=== PATIENT | female | born 1955 | race Caucasian/White ===

== ENCOUNTER → 2016-12-26 | Outpatient (CLI) | payer OTHER ==
[2016-12-26 11:31] LABS: ABSOLUTE BASOPHILS # (AUTO) 0.1 10^3/uL (0.0-0.2); ABSOLUTE EOSINOPHILS # (AUTO) 0.3 10^3/uL (0.0-0.6); ABSOLUTE LYMPHOCYTES (AUTO) 2.3 10^3/uL (0.5-4.7); ABSOLUTE MONOCYTES (AUTO) 0.4 10^3/uL (0.1-1.4); ABSOLUTE NEUT (AUTO) 3.3 10^3/uL (1.7-8.2); BASOPHILS % (AUTO) 1.5 % (0-2); EOSINOPHILS % (AUTO) 4.6 % (0-6); HEMATOCRIT 38.5 % (36.0-47.0); HEMOGLOBIN 12.4 g/dL (12.0-15.5); HGB HCT DIFFERENCE -1.3; LYMPHOCYTES % (AUTO) 35.7 % (13-45); MEAN CORPUSCULAR HEMOGLOBIN 25.5 pg (27.0-33.4); MEAN CORPUSCULAR HGB CONC 32.3 g/dL (32.0-36.0); MEAN CORPUSCULAR VOLUME 79 fl (80-97); RED BLOOD COUNT 4.86 10^6/uL (3.72-5.28); RED CELL DISTRIBUTION WIDTH 15.4 % (11.5-14.0); SEGMENTED NEUTROPHILS % (AUTO) 51.2 % (42-78); WHITE BLOOD COUNT 6.4 10^3/uL (4.0-10.5)
[2016-12-26 11:45] LABS: APPEARANCE,URINE CLEAR; BILIRUBIN,URINE NEGATIVE (NEGATIVE); GLUCOSE, URINE NEGATIVE (NEGATIVE); KETONES,URINE NEGATIVE (NEGATIVE); LEUKOCYTE ESTERASE,URINE NEGATIVE (NEGATIVE); NITRITE,URINE NEGATIVE (NEGATIVE); PROTEIN,URINE NEGATIVE (NEGATIVE); URINE SPECIFIC GRAVITY 1.019; UROBILINOGEN,URINE NEGATIVE mg/dL (<2.0)
[2016-12-26 11:51] LABS: ALBUMIN 4.5 g/dL (3.5-5.0); ANION GAP 11 (5-19); BLOOD UREA NITROGEN 15 mg/dL (7-20); CARBON DIOXIDE 26 mmol/L (22-30); CHLORIDE 104 mmol/L (98-107); CREATININE RESULT 0.83 mg/dL (0.52-1.25); GLUCOSE 91 mg/dL (75-110); PHOSPHORUS 4.3 mg/dL (2.5-4.5); SODIUM 141.3 mmol/L (137-145)
[2016-12-27 11:40] LABS: CREATININE URINE 141.4 mg/dL (Not Estab.); MICROALBUMIN URINE 3.3 ug/mL (Not Estab.)
[2016-12-27 12:28] LABS: VITAMIN D 25-HYDROXY 20.7 ng/mL (30.0-100.0)
== END ==
LOC: OD 10:37
PROVIDERS: ATTEND Internal Medicine Nephrology
DX: I99.9 Unspecified disorder of circulatory system (principal); N18.3 Chronic kidney disease, stage 3 (moderate)
CPT/HCPCS: 36415; 80048; 81001; 82040; 82043; 82306; 82570; 83970; 84100; 85025

== ENCOUNTER → 2017-01-17 | Outpatient (CLI) | payer OTHER | LOC: RAD 08:46 | PROVIDERS: ATTEND Physician Assistant Medical | DX: K59.00 Constipation, unspecified (principal); K57.30 Diverticulosis of large intestine without perforation or abscess without bleeding; K92.1 Melena; R10.30 Lower abdominal pain, unspecified; R93.3 Abnormal findings on diagnostic imaging of other parts of digestive tract | CPT/HCPCS: 74177 ==

== ENCOUNTER 2017-02-23 10:57 | Emergency (ER) | payer OTHER ==
--- NOTE | 2017-02-23 11:22 | ER Document Report ---
ED Medical Screen (RME) - General Chief Complaint: Abdominal Pain Stated Complaint: ABDOMINAL PAIN TRAVEL OUTSIDE OF THE [place] IN LAST 30 DAYS: No COUNTRY TRAVELED TO/FROM: [facility] Notes: 02/23/17 11:21 Nausea vomiting diarrhea left lower quadrant pain. Denies fevers no sick contacts - Related Data Allergies/Adverse Reactions: codeine Allergy (Severe, Verified 02/23/17 11:13) mycins Allergy (Uncoded 02/23/17 11:13) Past Medical History - Past Medical History Cardiac Medical History: Reports: Hx Atrial Fibrillation, Hx Hypercholesterolemia - "borderline" Denies: Hx Coronary Artery Disease, Hx Heart Attack, Hx Hypertension Pulmonary Medical History: Denies: Hx Asthma, Hx Bronchitis, Hx COPD, Hx Pneumonia, Hx Tuberculosis Neurological Medical History: Denies: Hx Cerebrovascular Accident, Hx Seizures Endocrine Medical History: Reports: 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 " Renal/ Medical History: Denies: Hx Peritoneal Dialysis Musculoskeltal Medical History: Denies Hx Arthritis Past Surgical History: Reports: Hx Appendectomy, Hx Bowel Surgery, Hx Cholecystectomy, Hx Hysterectomy. Denies: Hx Pacemaker - Immunizations Hx Diphtheria, Pertussis, Tetanus Vaccination: Yes Review of Systems - Review of Systems Gastrointestinal: Abdominal pain Physical Exam - General General appearance: Appears well In distress: None - Respiratory Respiratory status: No respiratory distress Chest status: Nontender Breath sounds: Normal Chest palpation: Normal
[2017-02-23 11:49] LABS: ABSOLUTE BASOPHILS # (AUTO) 0.1 10^3/uL (0.0-0.2); ABSOLUTE EOSINOPHILS # (AUTO) 0.4 10^3/uL (0.0-0.6); ABSOLUTE LYMPHOCYTES (AUTO) 2.2 10^3/uL (0.5-4.7); ABSOLUTE MONOCYTES (AUTO) 0.4 10^3/uL (0.1-1.4); ABSOLUTE NEUT (AUTO) 3.4 10^3/uL (1.7-8.2); BASOPHILS % (AUTO) 1.3 % (0-2); EOSINOPHILS % (AUTO) 5.6 % (0-6); HEMATOCRIT 38.7 % (36.0-47.0); HEMOGLOBIN 12.4 g/dL (12.0-15.5); HGB HCT DIFFERENCE -1.5; LYMPHOCYTES % (AUTO) 34.5 % (13-45); MEAN CORPUSCULAR HGB CONC 31.9 g/dL (32.0-36.0); MEAN CORPUSCULAR VOLUME 78 fl (80-97); RED BLOOD COUNT 4.94 10^6/uL (3.72-5.28); SEGMENTED NEUTROPHILS % (AUTO) 52.6 % (42-78); WHITE BLOOD COUNT 6.5 10^3/uL (4.0-10.5)
[2017-02-23 11:56] LABS: APPEARANCE,URINE SLIGHTLY-CLOUDY; BILIRUBIN,URINE NEGATIVE (NEGATIVE); GLUCOSE, URINE NEGATIVE (NEGATIVE); KETONES,URINE TRACE mg/dL (NEGATIVE); LEUKOCYTE ESTERASE,URINE NEGATIVE (NEGATIVE); NITRITE,URINE NEGATIVE (NEGATIVE); PROTEIN,URINE NEGATIVE (NEGATIVE); URINE SPECIFIC GRAVITY 1.028; UROBILINOGEN,URINE NEGATIVE mg/dL (<2.0)
[2017-02-23 12:06] LABS: ALANINE AMINOTRANSFERASE 41 U/L (9-52); ALBUMIN 4.3 g/dL (3.5-5.0); ALKALINE PHOSPHATASE 92 U/L (38-126); ANION GAP 12 (5-19); ASPARTATE AMINO TRANSFERASE 30 U/L (14-36); BILIRUBIN,DIRECT 0.2 mg/dL (0.0-0.4); BILIRUBIN,TOTAL 0.4 mg/dL (0.2-1.3); BLOOD UREA NITROGEN 11 mg/dL (7-20); CALCIUM 9.8 mg/dL (8.4-10.2); CARBON DIOXIDE 26 mmol/L (22-30); CHLORIDE 104 mmol/L (98-107); CREATININE RESULT 0.87 mg/dL (0.52-1.25); GLUCOSE 97 mg/dL (75-110); LIPASE 200.3 U/L (23-300); POTASSIUM 4.7 mmol/L (3.6-5.0); SODIUM 142.4 mmol/L (137-145); TOTAL PROTEIN 7.2 g/dL (6.3-8.2)
--- NOTE | 2017-02-23 12:47 | ER Document Report ---
ED General - General Chief Complaint: Abdominal Pain Stated Complaint: ABDOMINAL PAIN Mode of Arrival: Ambulatory Information source: Patient Notes: 61-year-old female presents with complaints of left lower quadrant abdominal pain. Patient denies any fevers chills nausea vomiting. Patient notes diarrhea. Patient notes symptoms started 2 weeks ago when she lifted her grand daughter. Patient has a history diverticulosis TRAVEL OUTSIDE OF THE [place] IN LAST 30 DAYS: No COUNTRY TRAVELED TO/FROM: [facility] Onset: Other Onset/Duration: Persistent Quality of pain: Achy Severity: Mild Pain Level: 1 Associated symptoms: None Exacerbated by: Denies Relieved by: Denies Similar symptoms previously: No Recently seen / treated by doctor: No - Related Data Allergies/Adverse Reactions: codeine Allergy (Severe, Verified 02/23/17 11:13) mycins Allergy (Uncoded 02/23/17 11:13) Past Medical History - Social History Smoking Status: Never Smoker Cigarette use (# per day): No Chew tobacco use (# tins/day): No Smoking Education Provided: No Frequency of alcohol use: None Drug Abuse: None Family History: Reviewed & Not Pertinent Patient has suicidal ideation: No Patient has homicidal ideation: No - Past Medical History Cardiac Medical History: Reports: Hx Atrial Fibrillation, Hx Hypercholesterolemia - "borderline" Denies: Hx Coronary Artery Disease, Hx Heart Attack, Hx Hypertension Pulmonary Medical History: Denies: Hx Asthma, Hx Bronchitis, Hx COPD, Hx Pneumonia, Hx Tuberculosis Neurological Medical History: Denies: Hx Cerebrovascular Accident, Hx Seizures Endocrine Medical History: Reports: 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 " Renal/ Medical History: Denies: Hx Peritoneal Dialysis Musculoskeltal Medical History: Denies Hx Arthritis Past Surgical History: Reports: Hx Abdominal Surgery - colon removal, hernia repair, Hx Appendectomy, Hx Bowel Surgery, Hx Cholecystectomy, Hx Hysterectomy. Denies: Hx Pacemaker - Immunizations Hx Diphtheria, Pertussis, Tetanus Vaccination: Yes Review of Systems - Review of Systems Notes: REVIEW OF SYSTEMS: CONSTITUTIONAL : Denies fever, chills, or sweats. Denies recent illness. EENT: Denies eye, ear, throat, or mouth pain or symptoms. Denies nasal or sinus congestion or discharge. Denies throat, tongue, or mouth swelling or difficulty swallowing. CARDIOVASCULAR: Denies chest pain. Denies palpitations or racing or irregular heart beat. Denies ankle edema. RESPIRATORY: Denies cough, cold, or chest congestion. Denies shortness of breath, difficulty breathing, or wheezing. GASTROINTESTINAL: Left lower quadrant abdominal pain GENITOURINARY: Denies difficulty urinating, painful urination, burning, frequency, blood in urine, or discharge. FEMALE GENITOURINARY: Denies vaginal bleeding, heavy or abnormal periods, irregular periods. Denies vaginal discharge or odor. MUSCULOSKELETAL: Denies back or neck pain or stiffness. Denies joint pain or swelling. SKIN: Denies rash, lesions or sores. HEMATOLOGIC : Denies easy bruising or bleeding. LYMPHATIC: Denies swollen, enlarged glands. NEUROLOGICAL: Denies confusion or altered mental status. Denies passing out or loss of consciousness. Denies dizziness or lightheadedness. Denies headache. Denies weakness or paralysis or loss of use of either side. Denies problems with gait or speech. Denies sensory loss, numbness, or tingling. Denies seizures. PSYCHIATRIC: Denies anxiety or stress. Denies depression, suicidal ideation, or homicidal ideation. ALL OTHER SYSTEMS REVIEWED AND NEGATIVE. Dictation was performed using [employer] voice recognition software PHYSICAL EXAMINATION: GENERAL: Well-appearing, well-nourished and in no acute distress. HEAD: Atraumatic, normocephalic. EYES: Pupils equal round and reactive to light, extraocular movements intact, conjunctiva are normal. ENT: Nares patent, oropharynx clear without exudates. Moist mucous membranes. NECK: Normal range of motion, supple without lymphadenopathy LUNGS: Breath sounds clear to auscultation bilaterally and equal. No wheezes rales or rhonchi. HEART: Regular rate and rhythm without murmurs ABDOMEN: Soft, minimally tender left lower quadrant no rebound or guarding Female : deferred Musculoskeletal: Normal range of motion, no pitting or edema. No cyanosis. NEUROLOGICAL: Cranial nerves grossly intact. Normal speech, normal gait. Normal sensory, motor exams PSYCH: Normal mood, normal affect. SKIN: Warm, Dry, normal turgor, no rashes or lesions noted. Physical Exam - Vital signs Vitals: Resp 18 02/23/17 12:20 Course - Re-evaluation Re-evalutation: 02/23/17 12:47 Patient has probable hernia, muscle strain versus diverticulitis, CT is pending 02/23/17 14:07 02/23/17 14:09 Imaging is consistent with diverticulosis without diverticulitis. I believe the patient has a muscle strain is otherwise stable for discharge. Patient has been instructed that I will prescribe antibiotics with the understanding that she only take if she is beginning to fevers or worsening symptoms. Otherwise patient is stable After performing a Medical Screening Examination, I estimate there is LOW risk for ACUTE APPENDICITIS, BOWEL OBSTRUCTION, ACUTE CHOLECYSTITIS, PERFORATED DIVERTICULITIS, INCARCERATED HERNIA, PANCREATITIS, PELVIC INFLAMMATORY DISEASE, PERFORATED ULCER, ECTOPIC , or TUBO-OVARIAN ABSCESS, thus I consider the discharge disposition reasonable. Also, there is no evidence or peritonitis , sepsis, or toxicity. The patient and I have discussed the diagnosis and risks , and we agree with discharging home with close follow-up with the understanding that symptoms and presentations can change. We also discussed returning to the Emergency Department immediately if new or worsening symptoms occur. We have discussed the symptoms which are most concerning (e.g., bloody stool, fever, changing or worsening pain, vomiting) that necessitate immediate return. - Vital Signs Vital signs: Temp Pulse Resp BP Pulse Ox 98.5 F 80 20 123/59 L 97 02/23/17 13:45 02/23/17 13:45 02/23/17 13:45 02/23/17 13:45 02/23/17 13:45 - Laboratory Result Diagrams: 02/23/17 11:29 02/23/17 11:29 Laboratory results interpreted by me: 02/23/17 02/23/17 11:29 11:29 MCV 78 L MCH 25.0 L MCHC 31.9 L RDW 16.0 H Urine Ketones TRACE H - Diagnostic Test Radiology reviewed: Image reviewed, Reports reviewed Discharge - Discharge Clinical Impression: Muscle strain Abdominal pain Qualifiers: Abdominal location: left lower quadrant Qualified Code(s): R10.32 - Left lower quadrant pain Condition: Stable Disposition: HOME, SELF-CARE Instructions: Abdominal Pain ([facility]) Prescriptions: Ciprofloxacin HCl [Cipro 500 mg Tablet] 500 mg PO BID #20 tablet Metronidazole [Flagyl 500 mg Tablet] 500 mg PO Q6H #40 tablet Naproxen 500 mg PO BID #20 tablet Referrals: JUSTIN MCLAIN PA-C [Primary Care Provider] - Follow up tomorrow
[2017-02-23 13:46] VITALS: BP 123/59
== END 2017-02-23 14:16 | disposition home or self-care (01) ==
LOC: ER 10:57
DX: T14.8 Other injury of unspecified body region (principal); R10.32 Left lower quadrant pain; X50.0XXA Overexertion from strenuous movement or load, initial encounter; Z87.19 Personal history of other diseases of the digestive system; Z88.5 Allergy status to narcotic agent; Z88.1 Allergy status to other antibiotic agents; Z90.49 Acquired absence of other specified parts of digestive tract; Z90.710 Acquired absence of both cervix and uterus
CPT/HCPCS: 36415; 74177; 80053; 81001; 83605; 83690; 85025; 99284

== ENCOUNTER 2017-03-04 04:12 | Observation (INO) | payer OTHER ==
[2017-03-04] MEDS ORDERED: ASPIRIN 81 MG TABLET, CHEWABLE PO ONE (04:42)
[2017-03-04 04:49] LABS: ABSOLUTE BASOPHILS # (AUTO) 0.1 10^3/uL (0.0-0.2); ABSOLUTE EOSINOPHILS # (AUTO) 0.2 10^3/uL (0.0-0.6); ABSOLUTE LYMPHOCYTES (AUTO) 1.9 10^3/uL (0.5-4.7); ABSOLUTE MONOCYTES (AUTO) 0.8 10^3/uL (0.1-1.4); ABSOLUTE NEUT (AUTO) 10.4 10^3/uL (1.7-8.2); BASOPHILS % (AUTO) 0.5 % (0-2); EOSINOPHILS % (AUTO) 1.7 % (0-6); HEMATOCRIT 38.1 % (36.0-47.0); HEMOGLOBIN 12.2 g/dL (12.0-15.5); HGB HCT DIFFERENCE -1.5; LYMPHOCYTES % (AUTO) 13.9 % (13-45); MEAN CORPUSCULAR HGB CONC 31.9 g/dL (32.0-36.0); MEAN CORPUSCULAR VOLUME 79 fl (80-97); MONOCYTES % (AUTO) 5.9 % (3-13); RED BLOOD COUNT 4.85 10^6/uL (3.72-5.28); RED CELL DISTRIBUTION WIDTH 15.8 % (11.5-14.0); WHITE BLOOD COUNT 13.4 10^3/uL (4.0-10.5)
[2017-03-04 05:04] LABS: ALANINE AMINOTRANSFERASE 34 U/L (9-52); ALBUMIN 4.5 g/dL (3.5-5.0); ALKALINE PHOSPHATASE 85 U/L (38-126); ANION GAP 16 (5-19); ASPARTATE AMINO TRANSFERASE 37 U/L (14-36); BILIRUBIN,DIRECT 0.4 mg/dL (0.0-0.4); BILIRUBIN,TOTAL 0.6 mg/dL (0.2-1.3); BLOOD UREA NITROGEN 21 mg/dL (7-20); CARBON DIOXIDE 23 mmol/L (22-30); CHLORIDE 107 mmol/L (98-107); CREATINE KINASE 127 U/L (30-135); CREATININE RESULT 0.85 mg/dL (0.52-1.25); GLUCOSE 121 mg/dL (75-110); POTASSIUM 4.9 mmol/L (3.6-5.0); SODIUM 145.5 mmol/L (137-145); TOTAL PROTEIN 7.6 g/dL (6.3-8.2)
[2017-03-04] MEDS ORDERED: ONDANSETRON HCL INJ/PF 4 MG/2 ML SDV IV ONE (05:09)
[2017-03-04] MEDS ORDERED: NORMAL SALINE 1000 ML 1,000 ML IV ONE (05:12)
[2017-03-04 05:14] LABS: CREATINE KINASE MB 1.81 ng/mL (<4.55)
--- NOTE | 2017-03-04 05:15 | ER Document Report ---
ED Cardiac - General Chief Complaint: Chest Pain Stated Complaint: DIFFICULTY BREATHING Mode of Arrival: Ambulatory Information source: Patient TRAVEL OUTSIDE OF THE [place] IN LAST 30 DAYS: No COUNTRY TRAVELED TO/FROM: [facility] Patient complains to provider of: Chest pain Notes: Patient arrives with complaints of nausea, chest tightness and shortness of breath. Patient states that around 11:00 she started feeling very nauseous and vomited several times. From same time she started having some tightness in her chest and feels short of breath. She continues to feel short of breath at this time. She states that her nausea has improved significantly. She was having some abdominal pain when she was having the nausea, but denies any abdominal pain currently. She has a history of high cholesterol and diabetes, no history of CAD, hypertension, smoking, drug use. She states that she has a history of some sort of arrhythmia she is unclear as to exactly what it is. She is on no blood thinning medications. She denies any recent cough or fever. She denies recent trips or surgeries. No leg pain or swelling. No history DVT or PE. No hormone use. No obvious cancer. Her symptoms better or worse. - Related Data Allergies/Adverse Reactions: codeine Allergy (Severe, Verified 02/23/17 11:13) mycins Allergy (Uncoded 02/23/17 11:13) Past Medical History - Social History Smoking Status: Unknown if Ever Smoked Family History: Reviewed & Not Pertinent Patient has suicidal ideation: No Patient has homicidal ideation: No - Past Medical History Cardiac Medical History: Reports: Hx Atrial Fibrillation, Hx Hypercholesterolemia - "borderline" Denies: Hx Coronary Artery Disease, Hx Heart Attack, Hx Hypertension Pulmonary Medical History: Denies: Hx Asthma, Hx Bronchitis, Hx COPD, Hx Pneumonia, Hx Tuberculosis Neurological Medical History: Denies: Hx Cerebrovascular Accident, Hx Seizures Endocrine Medical History: Reports: 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 " Renal/ Medical History: Denies: Hx Peritoneal Dialysis Musculoskeltal Medical History: Denies Hx Arthritis Past Surgical History: Reports: Hx Abdominal Surgery - colon removal, hernia repair, Hx Appendectomy, Hx Bowel Surgery, Hx Cholecystectomy, Hx Hysterectomy. Denies: Hx Pacemaker - Immunizations Hx Diphtheria, Pertussis, Tetanus Vaccination: Yes Review of Systems - Review of Systems -: Yes All other systems reviewed and negative Physical Exam - Vital signs Vitals: Temp Pulse Resp BP Pulse Ox 98.1 F 124 H 20 156/89 H 97 03/04/17 04:21 03/04/17 04:21 03/04/17 04:21 03/04/17 04:21 03/04/17 04:21 - Notes Notes: GENERAL: alert, cooperative, nontoxic, no distress. HEAD: normocephalic, atraumatic EYES: conjunctiva pink without discharge, no external redness or swelling. EARS: no external swelling, no external redness NOSE: atraumatic, no external swelling MOUTH/THROAT: mucous membranes moist and pink, posterior pharynx without erythema, swelling, exudate. No trismus or drooling. NECK: soft, supple, full range of motion, no meningismus. CHEST: no distress, lungs clear and equal throughout. No wheezing, rales, rhonchi. CARDIAC: Mild tachycardia and reg rhythm, no murmur, normal capillary refill, normal pulses. No peripheral edema noted. ABDOMEN: Soft, nontender. No mass, no pulsatile mass. BACK: full range of motion, no CVA tenderness. EXTREMITIES: full range of motion of all extremities. No redness, no swelling. NEURO: alert and oriented -3, no focal deficits, full range of motion of all extremities. PYSCH: appropriate mood, affect. Patient is cooperative. SKIN: pink, warm, dry, no rash. Course - Re-evaluation Re-evalutation: 03/04/17 06:57 Patient arrives with complaints of nausea, vomiting, chest pain and shortness of breath started earlier today. When she arrived she was slightly tachycardic. Tachycardia has improved with IV fluids. Patient has a history of high cholesterol and diabetes. Chest pain is resolved at this time. EKG shows sinus tachycardia with no other acute findings. Initial troponin is negative. CTA of the chest shows no acute findings. Based on the patient's symptoms and risk factors, the patient will be admitted for a cardiac rule out. 03/04/17 07:36 Case discussed with Robin Florina, the admission has been accepted under Dr. Prather. - Vital Signs Vital signs: Temp Pulse Resp BP Pulse Ox 98.1 F 124 H 20 137/68 H 100 03/04/17 04:21 03/04/17 04:21 03/04/17 07:01 03/04/17 07:01 03/04/17 07:01 - Laboratory Result Diagrams: 03/04/17 04:40 03/04/17 04:40 Laboratory results interpreted by me: 03/04/17 03/04/17 04:40 04:40 WBC 13.4 H MCV 79 L MCH 25.0 L MCHC 31.9 L RDW 15.8 H Absolute Neutrophils 10.4 H Sodium 145.5 H BUN 21 H Glucose 121 H AST 37 H - EKG Interpretation by Me EKG shows normal: Sinus rhythm, [place], Intervals, QRS Complexes, ST-T Waves Rate: Tachycardia Discharge - Discharge Clinical Impression: Chest pain Qualifiers: Chest pain type: unspecified Qualified Code(s): R07.9 - Chest pain, unspecified Condition: Stable Disposition: ADMITTED OBSERVATION Admitting Provider: Hospitalist - by Robin Florian for Dr. Prather Unit Admitted: Telemetry Referrals: JUSTIN MCLAIN PA-C [Primary Care Provider] - Follow up as needed
[2017-03-04 05:17] LABS: TROPONIN I < 0.012 ng/mL
[2017-03-04] MEDS ORDERED: ONDANSETRON 4 MG TAB.RAPDIS PO PRN (07:51)
[2017-03-04] MEDS ORDERED: ENOXAPARIN SODIUM INJ 40 MG/0.4 ML DISP.SYRIN SUBCUT SCH (08:00)
[2017-03-04] MEDS ORDERED: MAG HYDROX/AL HYDROX/SIMETH SUSP 30 ML UDCUP PO ONE (08:38)
[2017-03-04] MEDS ORDERED: NORMAL SALINE 1000 ML 1,000 ML IV PRN (08:38)
[2017-03-04] MEDS ORDERED: METOCLOPRAMIDE HCL ORAL SOLN 10 MG/10 ML UDCUP PO ONE (08:38)
[2017-03-04] MEDS ORDERED: LIDOCAINE 2% VISCOUS SOLN 20 ML UDCUP PO ONE (08:38)
[2017-03-04] MEDS ORDERED: SIMETHICONE 40 MG/0.6 ML DROPS 30ML PO ONE (09:30)
--- NOTE | 2017-03-04 14:54 | PDOC H&P ---
History of Present Illness Admission Date/PCP: 03/04/17 07:48 JUSTIN MCLAIN PA-C Patient complains of: Nausea and chest pain History of Present Illness: MANNY RAMÍREZ is a 61 year old female with a past medical history of fundoplication presents to the emergency department with complaints of nausea, chest tightness and shortness of breath. Patient states that around 11:00 on she started feeling very nauseous and vomited several times. The patient's had stated he was not feeling well either. From same time she started having some tightness in her chest and feels short of breath. She continues to feel short of breath at this time. She states that her nausea has improved significantly. She was having some abdominal pain when she was having the nausea, but denies any abdominal pain currently. She has a history of high cholesterol and diabetes, no history of CAD, hypertension, smoking, drug use. She states that she has a history of some sort of arrhythmia she is unclear as to exactly what it is but has an implanted recorder. She is on no blood thinning medications. She denies any recent cough or fever. She denies recent trips or surgeries. No leg pain or swelling. No history DVT or PE. No hormone use. No obvious cancer. Her symptoms better or worse. Newly resume metformin. The patient is followed by Dr. Mcdonnell cardiology in [place]. The patient has had her recent stress test in the past 2 years as well as cardiac catheterization. MEDICATIONS: The medications listed in this document may have been auto- populated from previous contact and may not been verified or reconciled. This may not be an accurate reflection of the patient's home medication(s); however, authors are unable to edit or delete the medications listed in this document as "home medications". Past Medical History Cardiac Medical History: Reports: Hyperlipidema - "borderline", Other - Uncertain tachycardia Endocrine Medical History: Reports: Diabetes Mellitus Type 2 - "pre diabetic", Hypothyroidism GI Medical History: Reports: Gastroesophageal Reflux Disease Past Surgical History Past Surgical History: Reports: Appendectomy, Cholecystectomy, Herniorrhaphy, Hysterectomy, Other - Neissen fundoplication Social History Information Source: Patient Lives with: Family, Spouse/Significant other Smoking Status: Former Smoker Last Time Smoked: 1989 Frequency of Alcohol Use: None Hx Recreational Drug Use: No Drugs: None Hx Prescription Drug Abuse: No - Advance Directive Resuscitation Status: Full Code Surrogate healthcare decision maker:: Family History Family History: Reviewed & Not Pertinent Parental Family History Reviewed: Yes Children Family History Reviewed: Yes Sibling(s) Family History Reviewed.: Yes Medication/Allergy Home Medications: Amitriptyline HCl [Elavil 10 Mg Tablet] 10 mg PO QHS 03/04/17 Aspirin [Aspirin 81 mg Chewable Tablet] 81 mg PO DAILY 03/04/17 Atorvastatin Calcium [Lipitor 20 mg Tablet] 20 mg PO QHS 03/04/17 Fenofibrate Nanocrystallized [Tricor 48 mg Tablet] 48 mg PO DAILY 03/04/17 Flecainide Acetate [Tambocor 100 Mg Tablet] 100 mg PO DAILY 03/04/17 Levothyroxine Sodium [Synthroid 50 Mcg Tablet] 50 mcg PO DAILY 03/04/17 Metformin HCl [Glucophage XR 500 mg Tablet] 1,000 mg PO QPM 03/04/17 Metoprolol Succinate [Toprol Xl 25 mg Tab.sr] 25 mg PO DAILY 03/04/17 Pramipexole Di-HCl [Mirapex 0.25 Mg Tablet] 0.25 mg PO QPM 03/04/17 Allergies/Adverse Reactions: codeine Allergy (Severe, Verified 02/23/17 11:13) mycins Allergy (Uncoded 02/23/17 11:13) Review of Systems Constitutional: PRESENT: headache(s), weight gain. ABSENT: chills, fever(s), weight loss Eyes: ABSENT: visual disturbances Ears: ABSENT: hearing changes Cardiovascular: PRESENT: chest pain. ABSENT: dyspnea on exertion, edema, orthropnea, palpitations Respiratory: ABSENT: cough, hemoptysis Gastrointestinal: PRESENT: nausea, vomiting. ABSENT: abdominal pain, constipation, diarrhea, hematemesis, hematochezia Genitourinary: ABSENT: dysuria, hematuria Musculoskeletal: ABSENT: joint swelling Integumentary: ABSENT: rash, wounds Neurological: ABSENT: abnormal gait, abnormal speech, confusion, dizziness, focal weakness, syncope Psychiatric: ABSENT: anxiety, depression, homidical ideation, suicidal ideation Endocrine: ABSENT: cold intolerance, heat intolerance, polydipsia, polyuria Hematologic/Lymphatic: ABSENT: easy bleeding, easy bruising Physical Exam Vital Signs: Temp Pulse Resp BP Pulse Ox 98.2 F 77 22 H 118/60 100 03/04/17 11:01 04/18/17 11:50 03/04/17 11:50 03/04/17 11:50 03/04/17 11:01 General appearance: PRESENT: no acute distress, cooperative, well-developed, well-nourished Head exam: PRESENT: atraumatic, normocephalic Eye exam: PRESENT: conjunctiva pink, EOMI, PERRLA. ABSENT: scleral icterus Ear exam: PRESENT: normal external ear exam Mouth exam: PRESENT: moist, tongue midline Neck exam: ABSENT: carotid bruit, JVD, lymphadenopathy, thyromegaly Respiratory exam: PRESENT: clear to auscultation miladys, symmetrical, unlabored. ABSENT: rales, rhonchi, tachypnea, wheezes Cardiovascular exam: PRESENT: RRR. ABSENT: diastolic murmur, rubs, systolic murmur Pulses: PRESENT: normal dorsalis pedis pul Vascular exam: PRESENT: normal capillary refill GI/Abdominal exam: PRESENT: normal bowel sounds, soft. ABSENT: distended, guarding, mass, organolmegaly, rebound, tenderness Rectal exam: PRESENT: deferred Extremities exam: PRESENT: full ROM. ABSENT: calf tenderness, clubbing, pedal edema Neurological exam: PRESENT: alert, awake, oriented to person, oriented to place , oriented to time, oriented to situation, CN II-XII grossly intact. ABSENT: motor sensory deficit Psychiatric exam: PRESENT: appropriate affect, normal mood. ABSENT: homicidal ideation, suicidal ideation Skin exam: PRESENT: dry, intact, warm. ABSENT: cyanosis, rash Results Laboratory Results: Labs- Last Values WBC 13.4 10^3/uL (4.0-10.5) H 03/04/17 04:40 RBC 4.85 10^6/uL (3.72-5.28) 03/04/17 04:40 Hgb 12.2 g/dL (12.0-15.5) 03/04/17 04:40 Hct 38.1 % (36.0-47.0) 03/04/17 04:40 MCV 79 fl (80-97) L 03/04/17 04:40 MCH 25.0 pg (27.0-33.4) L 03/04/17 04:40 MCHC 31.9 g/dL (32.0-36.0) L 03/04/17 04:40 RDW 15.8 % (11.5-14.0) H 03/04/17 04:40 Plt Count 201 10^3/uL (150-450) 03/04/17 04:40 Seg Neutrophils % 78.0 % (42-78) 03/04/17 04:40 Lymphocytes % 13.9 % (13-45) 03/04/17 04:40 Monocytes % 5.9 % (3-13) 03/04/17 04:40 Eosinophils % 1.7 % (0-6) 03/04/17 04:40 Basophils % 0.5 % (0-2) 03/04/17 04:40 Absolute Neutrophils 10.4 10^3/uL (1.7-8.2) H 03/04/17 04:40 Absolute Lymphocytes 1.9 10^3/uL (0.5-4.7) 03/04/17 04:40 Absolute Monocytes 0.8 10^3/uL (0.1-1.4) 03/04/17 04:40 Absolute Eosinophils 0.2 10^3/uL (0.0-0.6) 03/04/17 04:40 Absolute Basophils 0.1 10^3/uL (0.0-0.2) 03/04/17 04:40 Sodium 145.5 mmol/L (137-145) H 03/04/17 04:40 Potassium 4.9 mmol/L (3.6-5.0) 03/04/17 04:40 Chloride 107 mmol/L (98-107) 03/04/17 04:40 Carbon Dioxide 23 mmol/L (22-30) 03/04/17 04:40 Anion Gap 16 (5-19) 03/04/17 04:40 BUN 21 mg/dL (7-20) H 03/04/17 04:40 Creatinine 0.85 mg/dL (0.52-1.25) 03/04/17 04:40 Est GFR ( Amer) > 60 (>60) 03/04/17 04:40 Est GFR (Non-Af Amer) > 60 (>60) 03/04/17 04:40 Glucose 121 mg/dL (75-110) H 03/04/17 04:40 Calcium 10.0 mg/dL (8.4-10.2) 03/04/17 04:40 Total Bilirubin 0.6 mg/dL (0.2-1.3) 03/04/17 04:40 Direct Bilirubin 0.4 mg/dL (0.0-0.4) 03/04/17 04:40 Indirect Bilirubin Not Reportable 03/04/17 04:40 Neonat Total Bilirubin Not Reportable 03/04/17 04:40 AST 37 U/L (14-36) H 03/04/17 04:40 ALT 34 U/L (9-52) 03/04/17 04:40 Alkaline Phosphatase 85 U/L (38-126) 03/04/17 04:40 Creatine Kinase 127 U/L (30-135) 03/04/17 04:40 CK-MB (CK-2) 1.81 ng/mL (<4.55) 03/04/17 04:40 Troponin I < 0.012 ng/mL 03/04/17 09:20 Total Protein 7.6 g/dL (6.3-8.2) 03/04/17 04:40 Albumin 4.5 g/dL (3.5-5.0) 03/04/17 04:40 TSH 0.65 uIU/mL (0.47-4.68) 03/04/17 04:40 Impressions: Chest/Abdomen CTA 03/04/17 05:09 IMPRESSION: NORMAL CTA OF THE CHEST. NO PULMONARY EMBOLI. Assessment & Plan - Diagnosis (1) Chest pain Qualifiers: Chest pain type: unspecified Qualified Code(s): R07.9 - Chest pain, unspecified Is this a current diagnosis for this admission?: YesPlan: Will observe the patient continues telemetry unit, obtain serial cardiac enzymes , repeat EKG, and obtain lipid panel in the a.m. (2) GERD (gastroesophageal reflux disease) Qualifiers: Esophagitis presence: esophagitis presence not specified Qualified Code(s): K21.9 - Gastro-esophageal reflux disease without esophagitis Is this a current diagnosis for this admission?: YesPlan: Will continue home medications.. Will add GI cocktail with simethicone. (3) Hypothyroidism Qualifiers: Hypothyroidism type: unspecified Qualified Code(s): E03.9 - Hypothyroidism, unspecified Is this a current diagnosis for this admission?: YesPlan: Will continue levothyroxine 04/18/17 04:40 TSH 0.65 (4) Dehydration Is this a current diagnosis for this admission?: YesPlan: Will hydrate. Concern that the patient may have either in consumption or have viral process given that the patient's has also been ill the patient did have a white count noted. He should the vomiting has been hindered by previous gastric surgery therefore skewing her presentation. (5) Prediabetes Is this a current diagnosis for this admission?: YesPlan: Will hold metformin for now given the patient's GI distress (6) Tachycardia, unspecified Is this a current diagnosis for this admission?: YesPlan: Heart rate is currently controlled. Will resume the patient's flecainide and Toprol. - Time Time Spent: 50 to 70 Minutes Medications reviewed and adjusted accordingly: Yes Anticipated discharge: Home Within: within 24 hours Disposition: The patient is a full code. Pending patient's symptomatology and diagnostic findings will reevaluate in the a.m.
[2017-03-04] MEDS ORDERED: METOPROLOL SUCCINATE 25 MG TAB.SR.24H PO ONE (15:30)
[2017-03-04] MEDS ORDERED: FLECAINIDE ACETATE 100 MG TABLET PO ONE (15:30)
[2017-03-04] MEDS ORDERED: PRAMIPEXOLE DI-HCL 0.25 MG TABLET PO SCH (18:00)
[2017-03-04] MEDS ORDERED: AMITRIPTYLINE HCL 10 MG TABLET PO SCH (22:00)
[2017-03-04] MEDS ORDERED: ATORVASTATIN CALCIUM 20 MG TABLET PO SCH (22:00)
[2017-03-05 06:37] LABS: CHOLESTEROL 163.31 mg/dL (0-200); Direct HDL 39 mg/dL (>40); TRIGLYCERIDES 167 mg/dL (<150)
[2017-03-05 06:48] LABS: DIRECT LDL 94 mg/dL (<100)
[2017-03-05 06:49] LABS: VLDL CHOLESTEROL 33.4 mg/dL (10-31)
[2017-03-05] MEDS ORDERED: ASPIRIN 81 MG TABLET, CHEWABLE PO SCH (10:00)
[2017-03-05] MEDS ORDERED: FENOFIBRATE NANOCRYSTALLIZED 48 MG TABLET PO SCH (10:00)
[2017-03-05] MEDS ORDERED: FLECAINIDE ACETATE 100 MG TABLET PO SCH (10:00)
[2017-03-05] MEDS ORDERED: METOPROLOL SUCCINATE 25 MG TAB.SR.24H PO SCH (10:00)
[2017-03-05] MEDS ORDERED: LEVOTHYROXINE SODIUM 0.05 MG TABLET PO SCH (10:00)
[2017-03-05 10:45] VITALS: BP 125/75
--- NOTE | 2017-03-05 20:04 | EKG REPORT ---
SEVERITY:- OTHERWISE NORMAL ECG - SINUS TACHYCARDIA : Confirmed by: Michell Jade MD 05-Mar-2017 20:03:45
--- NOTE | 2017-03-06 16:38 | PDOC DISCHARGE SUMMARY ---
General - Admit/Disc Date/PCP Admission Date/Primary Care Provider: 03/04/17 07:48 JUSTIN MCLAIN PA-C Discharge Date: 03/05/17 - Discharge Diagnosis (1) Viral illness Is this a current diagnosis for this admission?: Yes (2) GERD (gastroesophageal reflux disease) Is this a current diagnosis for this admission?: Yes (3) Status post Courtney fundoplication Is this a current diagnosis for this admission?: Yes (4) Chest pain Is this a current diagnosis for this admission?: YesSummary: Is likely secondary to the above. (5) Hypothyroidism Is this a current diagnosis for this admission?: Yes (6) Dehydration Is this a current diagnosis for this admission?: Yes (7) Prediabetes Is this a current diagnosis for this admission?: Yes (8) Tachycardia, unspecified Is this a current diagnosis for this admission?: Yes - Additional Information Resuscitation Status: Full Code Discharge Diet: As Tolerated Discharge Activity: Activity As Tolerated, Balance Activity w/Rest Home Medications: Amitriptyline HCl [Elavil 10 mg Tablet] 10 mg PO QHS 03/04/17 Aspirin [Aspirin 81 mg Chewable Tablet] 81 mg PO DAILY 03/04/17 Atorvastatin Calcium [Lipitor 20 mg Tablet] 20 mg PO QHS 03/04/17 Fenofibrate Nanocrystallized [Tricor 48 mg Tablet] 48 mg PO DAILY 03/04/17 Flecainide Acetate [Tambocor 100 mg Tablet] 100 mg PO DAILY 03/04/17 Levothyroxine Sodium [Synthroid 0.05 mg Tablet] 50 mcg PO DAILY 03/04/17 Metoprolol Succinate [Toprol Xl 25 mg Tab.sr] 25 mg PO DAILY 03/04/17 Pramipexole Di-HCl [Mirapex 0.25 mg Tablet] 0.25 mg PO QPM 03/04/17 Metformin HCl [Glucophage XR 500 mg Tablet] 500 mg PO QPM #0 03/05/17 History of Present Illness Patient complains of: Chest pain, constant belching, bloating sensation History of Present Illness: MANNY RAMÍREZ is a 61 year old female with a past medical history of fundoplication presents to the emergency department with complaints of nausea, chest tightness and shortness of breath. Patient states that around 11:00 on she started feeling very nauseous and vomited several times. The patient's had stated he was not feeling well either. From same time she started having some tightness in her chest and feels short of breath. She continues to feel short of breath at this time. She states that her nausea has improved significantly. She was having some abdominal pain when she was having the nausea, but denies any abdominal pain currently. She has a history of high cholesterol and diabetes, no history of CAD, hypertension, smoking, drug use. She states that she has a history of some sort of arrhythmia she is unclear as to exactly what it is but has an implanted recorder. She is on no blood thinning medications. She denies any recent cough or fever. She denies recent trips or surgeries. No leg pain or swelling. No history DVT or PE. No hormone use. No obvious cancer. Her symptoms better or worse. Newly resume metformin. The patient is followed by Dr. Mcdonnell cardiology in [place]. The patient has had her recent stress test in the past 2 years as well as cardiac catheterization. Hospital Course Hospital Course: The patient was observed in a continues telemetry unit, serial cardiac enzymes were obtained which were nonsuggestive. The patient's EKG revealed no acute changes and the patient had no events on monitor tech. Patient had no further replication of symptoms. The patient had complete symptom resolution with GI cocktail with simethicone. According to the patient she had gastric surgery done 10 years ago and has now started to belch again. The patient has not had an EGD since this time. According to the patient her and her both felt heel over the weekend. Even the patient's white count slight dehydration felt the patient may have viral illness and symptoms were exacerbated by the patient's inability to vomit and subsequent gas pain and pressure. Also to contribute to this the patient was resumed on metformin at 1 gram dosages. Recommendations been made for the patient to follow-up with GI which she started in the process of doing. Also given that the patient is not diabetic and only prediabetic recommendations been made for the patient to decrease metformin dosage to 500 daily. The patient had complete symptom resolution and is ready for discharge. She and does have her regularly scheduled follow with her french instructor Dr. Mcdonnell in [place]. Physical Exam Vital Signs: Temp Pulse Resp BP Pulse Ox 97.9 F 77 16 125/75 100 03/05/17 10:43 04/19/17 10:43 03/05/17 10:43 03/05/17 10:43 03/05/17 10:43 Intake & Output 03/04/17 03/05/17 03/06/17 23:59 23:59 23:59 Intake Total 222 100 Balance 222 100 General appearance: PRESENT: no acute distress, well-developed, well-nourished Head exam: PRESENT: atraumatic, normocephalic Eye exam: PRESENT: conjunctiva pink, EOMI, PERRLA. ABSENT: scleral icterus Ear exam: PRESENT: normal external ear exam Mouth exam: PRESENT: moist, tongue midline Neck exam: ABSENT: carotid bruit, JVD, lymphadenopathy, thyromegaly Respiratory exam: PRESENT: clear to auscultation miladys, symmetrical, unlabored. ABSENT: rales, rhonchi, tachypnea, wheezes Cardiovascular exam: PRESENT: RRR. ABSENT: diastolic murmur, rubs, systolic murmur Pulses: PRESENT: normal dorsalis pedis pul Vascular exam: PRESENT: normal capillary refill GI/Abdominal exam: PRESENT: normal bowel sounds, soft. ABSENT: distended, guarding, mass, organolmegaly, rebound, tenderness Rectal exam: PRESENT: deferred Extremities exam: PRESENT: full ROM. ABSENT: calf tenderness, clubbing, pedal edema Neurological exam: PRESENT: alert, awake, oriented to person, oriented to place , oriented to time, oriented to situation, CN II-XII grossly intact. ABSENT: motor sensory deficit Psychiatric exam: PRESENT: appropriate affect, normal mood. ABSENT: homicidal ideation, suicidal ideation Skin exam: PRESENT: dry, intact, warm. ABSENT: cyanosis, rash Results Laboratory Results: Labs- Last Values WBC 13.4 10^3/uL (4.0-10.5) H 03/04/17 04:40 RBC 4.85 10^6/uL (3.72-5.28) 03/04/17 04:40 Hgb 12.2 g/dL (12.0-15.5) 03/04/17 04:40 Hct 38.1 % (36.0-47.0) 03/04/17 04:40 MCV 79 fl (80-97) L 03/04/17 04:40 MCH 25.0 pg (27.0-33.4) L 03/04/17 04:40 MCHC 31.9 g/dL (32.0-36.0) L 03/04/17 04:40 RDW 15.8 % (11.5-14.0) H 03/04/17 04:40 Plt Count 201 10^3/uL (150-450) 03/04/17 04:40 Seg Neutrophils % 78.0 % (42-78) 03/04/17 04:40 Lymphocytes % 13.9 % (13-45) 03/04/17 04:40 Monocytes % 5.9 % (3-13) 03/04/17 04:40 Eosinophils % 1.7 % (0-6) 03/04/17 04:40 Basophils % 0.5 % (0-2) 03/04/17 04:40 Absolute Neutrophils 10.4 10^3/uL (1.7-8.2) H 03/04/17 04:40 Absolute Lymphocytes 1.9 10^3/uL (0.5-4.7) 03/04/17 04:40 Absolute Monocytes 0.8 10^3/uL (0.1-1.4) 03/04/17 04:40 Absolute Eosinophils 0.2 10^3/uL (0.0-0.6) 03/04/17 04:40 Absolute Basophils 0.1 10^3/uL (0.0-0.2) 03/04/17 04:40 Sodium 145.5 mmol/L (137-145) H 03/04/17 04:40 Potassium 4.9 mmol/L (3.6-5.0) 03/04/17 04:40 Chloride 107 mmol/L (98-107) 03/04/17 04:40 Carbon Dioxide 23 mmol/L (22-30) 03/04/17 04:40 Anion Gap 16 (5-19) 03/04/17 04:40 BUN 21 mg/dL (7-20) H 03/04/17 04:40 Creatinine 0.85 mg/dL (0.52-1.25) 03/04/17 04:40 Est GFR ( Amer) > 60 (>60) 03/04/17 04:40 Est GFR (Non-Af Amer) > 60 (>60) 03/04/17 04:40 Glucose 121 mg/dL (75-110) H 03/04/17 04:40 Calcium 10.0 mg/dL (8.4-10.2) 03/04/17 04:40 Total Bilirubin 0.6 mg/dL (0.2-1.3) 03/04/17 04:40 Direct Bilirubin 0.4 mg/dL (0.0-0.4) 03/04/17 04:40 Indirect Bilirubin Not Reportable 03/04/17 04:40 Neonat Total Bilirubin Not Reportable 03/04/17 04:40 AST 37 U/L (14-36) H 03/04/17 04:40 ALT 34 U/L (9-52) 03/04/17 04:40 Alkaline Phosphatase 85 U/L (38-126) 03/04/17 04:40 Creatine Kinase 127 U/L (30-135) 03/04/17 04:40 CK-MB (CK-2) 1.81 ng/mL (<4.55) 03/04/17 04:40 Troponin I < 0.012 ng/mL 03/04/17 15:30 Total Protein 7.6 g/dL (6.3-8.2) 03/04/17 04:40 Albumin 4.5 g/dL (3.5-5.0) 03/04/17 04:40 Triglycerides 167 mg/dL (<150) H 03/05/17 06:08 Cholesterol 163.31 mg/dL (0-200) 03/05/17 06:08 LDL Cholesterol Direct 94 mg/dL (<100) 03/05/17 06:08 VLDL Cholesterol 33.4 mg/dL (10-31) H 03/05/17 06:08 HDL Cholesterol 39 mg/dL (>40) L 03/05/17 06:08 TSH 0.65 uIU/mL (0.47-4.68) 03/04/17 04:40 Impressions: Chest/Abdomen CTA 03/04/17 05:09 IMPRESSION: NORMAL CTA OF THE CHEST. NO PULMONARY EMBOLI. Qualifiers PATEINT BEING DISCHARGED WITH ANY OF THE FOLLOWING DIAGNOSIS?: No Plan Discharge Plan: The patient is to followup with their primary care provider within one week for hospital followup regarding chest pain. The patient is a follow with her french instructor Dr. Mcdonnell as already scheduled. The patient is to follow-up with [facility]. Time Spent: Less than 30 Minutes
== END 2017-03-05 11:19 | disposition home or self-care (01) ==
LOC: ER 04:12 → EH 07:48 → 4N 12:14
PROVIDERS: ADMIT Family Medicine; ATTEND Family Medicine
DX: B34.9 Viral infection, unspecified (principal); K21.9 Gastro-esophageal reflux disease without esophagitis; R07.89 Other chest pain; E03.9 Hypothyroidism, unspecified; E86.0 Dehydration; R73.03 Prediabetes; R00.0 Tachycardia, unspecified; R06.02 Shortness of breath; E78.00 Pure hypercholesterolemia, unspecified; Z98.890 Other specified postprocedural states; Z79.82 Long term (current) use of aspirin; Z79.899 Other long term (current) drug therapy; Z98.84 Bariatric surgery status; Z87.891 Personal history of nicotine dependence; Z90.49 Acquired absence of other specified parts of digestive tract; Z90.710 Acquired absence of both cervix and uterus
CPT/HCPCS: 93005; 99285; 96374; 36415 ×2; 82553; 82550; 84443; 85025; 80053; 84484; 80061; 71275; 93010; G0378 ×3; J3490 ×5; J2405; J7030

== ENCOUNTER → 2017-03-31 | Outpatient (CLI) | payer OTHER | LOC: RAD 07:58 | PROVIDERS: ATTEND Surgery | DX: R10.9 Unspecified abdominal pain (principal) | CPT/HCPCS: 74247 ==

== ENCOUNTER 2017-04-16 15:11 | Emergency (ER) | payer OTHER ==
[2017-04-16] MEDS ORDERED: NORMAL SALINE 1000 ML 1,000 ML IV ONE (17:47)
[2017-04-16] MEDS ORDERED: ONDANSETRON HCL INJ/PF 4 MG/2 ML SDV IV ONE (17:48)
[2017-04-16] MEDS ORDERED: MORPHINE SULFATE 10 MG/ML INJ IV ONE (17:48)
--- NOTE | 2017-04-16 17:51 | ER Document Report ---
ED Medical Screen (RME) - General Chief Complaint: Abdominal Pain Stated Complaint: LOWER BACK PAIN Time Seen by Provider: 04/16/17 17:40 Mode of Arrival: Ambulatory Information source: Patient Notes: This is a 61-year-old female who presents with left lower quadrant abdominal pain. She states this is the third day of her pain. Today her pain is severe. She reports a fever at home yesterday of 101. She denies fever today. She has had nausea but no vomiting. Her last oral intake was a grilled cheese sandwich at 6:00 last night. She had a normal bowel movement yesterday. She has a prior history of diverticulitis and has had partial colon resection for same and this was done over 5 years ago. She states this pain is much worse than her prior diverticulitis. I have greeted and performed a rapid initial assessment of this patient. A comprehensive ED assessment and evaluation of the patient, analysis of test results and completion of the medical decision making process will be conducted by additional ED providers. TRAVEL OUTSIDE OF THE [place] IN LAST 30 DAYS: No COUNTRY TRAVELED TO/FROM: [facility] - Related Data Allergies/Adverse Reactions: codeine Allergy (Severe, Verified 04/16/17 16:29) mycins Allergy (Uncoded 04/16/17 16:29) Past Medical History - Past Medical History Cardiac Medical History: Reports: Hx Atrial Fibrillation, Hx Hypercholesterolemia - "borderline" Denies: Hx Coronary Artery Disease, Hx Heart Attack, Hx Hypertension Pulmonary Medical History: Denies: Hx Asthma, Hx Bronchitis, Hx COPD, Hx Pneumonia, Hx Tuberculosis Neurological Medical History: Denies: Hx Cerebrovascular Accident, Hx Seizures Endocrine Medical History: Reports: 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 ", Hx Hypothyroidism Renal/ Medical History: Denies: Hx Peritoneal Dialysis GI Medical History: Reports: Hx Gastroesophageal Reflux Disease Musculoskeltal Medical History: Denies Hx Arthritis Past Surgical History: Reports: Hx Abdominal Surgery - colon removal, hernia repair, Hx Appendectomy, Hx Bowel Surgery, Hx Cholecystectomy, Hx Herniorrhaphy , Hx Hysterectomy, Hx Pacemaker, Other - Neissen fundoplication - Immunizations Hx Diphtheria, Pertussis, Tetanus Vaccination: Yes Physical Exam - Vital signs Vitals: Temp Pulse Resp BP Pulse Ox 98.2 F 89 20 120/59 L 99 04/16/17 15:25 04/16/17 15:25 04/16/17 15:25 04/16/17 15:25 04/16/17 15:25 - General General appearance: Appears well In distress: Mild - Secondary to pain - Respiratory Respiratory status: No respiratory distress Breath sounds: Normal. No: Rales, Rhonchi, Wheezing - Cardiovascular Rhythm: Regular Heart sounds: Normal auscultation, S1 appreciated, S2 appreciated Course - Vital Signs Vital signs: Temp Pulse Resp BP Pulse Ox 98.2 F 89 20 120/59 L 99 04/16/17 15:25 04/16/17 15:25 04/16/17 15:25 04/16/17 15:25 04/16/17 15:25
[2017-04-16 18:53] LABS: ABSOLUTE BASOPHILS # (AUTO) 0.1 10^3/uL (0.0-0.2); ABSOLUTE EOSINOPHILS # (AUTO) 0.1 10^3/uL (0.0-0.6); ABSOLUTE MONOCYTES (AUTO) 0.4 10^3/uL (0.1-1.4); ABSOLUTE NEUT (AUTO) 4.8 10^3/uL (1.7-8.2); BASOPHILS % (AUTO) 0.9 % (0-2); EOSINOPHILS % (AUTO) 1.9 % (0-6); HEMATOCRIT 38.2 % (36.0-47.0); HEMOGLOBIN 11.9 g/dL (12.0-15.5); HGB HCT DIFFERENCE -2.5; LYMPHOCYTES % (AUTO) 26.8 % (13-45); MEAN CORPUSCULAR HEMOGLOBIN 24.2 pg (27.0-33.4); MEAN CORPUSCULAR HGB CONC 31.1 g/dL (32.0-36.0); MEAN CORPUSCULAR VOLUME 78 fl (80-97); MONOCYTES % (AUTO) 5.7 % (3-13); RED CELL DISTRIBUTION WIDTH 15.9 % (11.5-14.0); SEGMENTED NEUTROPHILS % (AUTO) 64.7 % (42-78); WHITE BLOOD COUNT 7.4 10^3/uL (4.0-10.5)
[2017-04-16 18:58] LABS: APPEARANCE,URINE CLEAR; BILIRUBIN,URINE NEGATIVE (NEGATIVE); GLUCOSE, URINE NEGATIVE (NEGATIVE); KETONES,URINE NEGATIVE (NEGATIVE); LEUKOCYTE ESTERASE,URINE NEGATIVE (NEGATIVE); NITRITE,URINE NEGATIVE (NEGATIVE); PROTEIN,URINE NEGATIVE (NEGATIVE); URINE SPECIFIC GRAVITY 1.005; UROBILINOGEN,URINE NEGATIVE mg/dL (<2.0)
[2017-04-16 19:16] LABS: ALANINE AMINOTRANSFERASE 28 U/L (9-52); ALBUMIN 4.4 g/dL (3.5-5.0); ALKALINE PHOSPHATASE 94 U/L (38-126); ANION GAP 11 (5-19); ASPARTATE AMINO TRANSFERASE 24 U/L (14-36); BILIRUBIN,DIRECT 0.3 mg/dL (0.0-0.4); BILIRUBIN,TOTAL 0.6 mg/dL (0.2-1.3); BLOOD UREA NITROGEN 12 mg/dL (7-20); CALCIUM 9.9 mg/dL (8.4-10.2); CARBON DIOXIDE 26 mmol/L (22-30); CHLORIDE 103 mmol/L (98-107); CREATININE RESULT 0.85 mg/dL (0.52-1.25); GLUCOSE 84 mg/dL (75-110); LIPASE 97.3 U/L (23-300); SODIUM 140.3 mmol/L (137-145); TOTAL PROTEIN 8.3 g/dL (6.3-8.2)
--- NOTE | 2017-04-16 20:19 | ER Document Report ---
ED GI/ - General Chief Complaint: Abdominal Pain Stated Complaint: LOWER BACK PAIN Time Seen by Provider: 04/16/17 17:40 Mode of Arrival: Ambulatory Information source: Patient Notes: 61 yo female with hx diverticulitis, partial colectomy (due to divertic), hernia repair, neissen fundoplication, (dr. hernandez in [place]). UGI done few weeks ago. Here today c/o "feeling yucky yesterday- slight LLQ pain" since friday, worse over past 2 days. Fever 101 today. This pain is in same location but alot worse. TRAVEL OUTSIDE OF THE [place] IN LAST 30 DAYS: No COUNTRY TRAVELED TO/FROM: [place] - Related Data Allergies/Adverse Reactions: codeine Allergy (Severe, Verified 04/16/17 16:29) mycins Allergy (Uncoded 04/16/17 16:29) Past Medical History - General Information source: Patient - Social History Smoking Status: Never Smoker Frequency of alcohol use: None Drug Abuse: None Lives with: Spouse/Significant other Family History: Reviewed & Not Pertinent Patient has suicidal ideation: No Patient has homicidal ideation: No - Past Medical History Cardiac Medical History: Reports: Hx Atrial Fibrillation, Hx Hypercholesterolemia - "borderline" Endocrine Medical History: Reports: 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 ", Hx Hypothyroidism Renal/ Medical History: Denies: Hx Peritoneal Dialysis GI Medical History: Reports: Hx Gastroesophageal Reflux Disease Past Surgical History: Reports: Hx Abdominal Surgery - colon removal, hernia repair, Hx Appendectomy, Hx Bowel Surgery, Hx Cholecystectomy, Hx Herniorrhaphy , Hx Hysterectomy, Hx Pacemaker, Other - Neissen fundoplication - Immunizations Hx Diphtheria, Pertussis, Tetanus Vaccination: Yes Review of Systems - Review of Systems Constitutional: No symptoms reported EENT: No symptoms reported Cardiovascular: No symptoms reported Respiratory: No symptoms reported Gastrointestinal: See HPI Genitourinary: No symptoms reported Female Genitourinary: No symptoms reported Musculoskeletal: No symptoms reported Skin: No symptoms reported Hematologic/Lymphatic: No symptoms reported Neurological/Psychological: No symptoms reported Physical Exam - Vital signs Vitals: Temp Pulse Resp BP Pulse Ox 98.2 F 89 20 120/59 L 99 04/16/17 15:25 04/16/17 15:25 04/16/17 15:25 04/16/17 15:25 04/16/17 15:25 Interpretation: Normal - General General appearance: Appears well, Alert In distress: None - HEENT Head: Normocephalic, Atraumatic Eyes: Normal Pupils: PERRL Neck: Supple - Respiratory Respiratory status: No respiratory distress Chest status: Nontender Breath sounds: Normal Chest palpation: Normal - Cardiovascular Rhythm: Regular Heart sounds: Normal auscultation Murmur: No - Abdominal Inspection: Normal Distension: No distension Bowel sounds: Normal Tenderness: Tender - LLQ, Other - negative robsing, pt does not want me to palpate LLQ. No: Rebound Organomegaly: No organomegaly - Back Back: Normal, Nontender. No: CVA tenderness - Extremities General upper extremity: Normal inspection, Nontender, Normal color, Normal ROM , Normal temperature General lower extremity: Normal inspection, Nontender, Normal color, Normal ROM , Normal temperature, Normal weight bearing. No: Melodie's sign - Neurological Neuro grossly intact: Yes Cognition: Normal Orientation: AAOx4 [place] Coma Scale Eye Opening: Spontaneous Fabio Coma Scale Verbal: Oriented [place] Coma Scale Motor: Obeys Commands [place]ue Coma Scale Total: 15 Speech: Normal Motor strength normal: LUE, RUE, LLE, RLE Sensory: Normal - Psychological Associated symptoms: Normal affect, Normal mood - Skin Skin Temperature: Warm Skin Moisture: Dry Skin Color: Normal Skin irregularity: Rash Course - Re-evaluation Re-evalutation: 04/16/17 22:18 CT and labs are negative. Asked the patient to let me examine the area more fully and she did not want me to touch it earlier. She is tender over the left sacroiliac joint posteriorly and lateral left lower quadrant. She did not realize that she was having pain posteriorly and when I examined over the SI joint it caused increased pain to the lateral left lower quadrant. We discussed treatment for musculoskeletal pain with radiation to the left lower quadrant and treatment of this. She also will follow up if it gets worse or any new symptoms. 04/17/17 22:51 - Vital Signs Vital signs: Temp Pulse Resp BP Pulse Ox 98.0 F 87 16 118/61 99 04/16/17 21:29 04/16/17 21:29 04/16/17 21:29 04/16/17 21:29 04/16/17 21:29 - Laboratory Result Diagrams: 04/16/17 18:27 04/16/17 18:27 Laboratory results interpreted by me: 04/16/17 04/16/17 18:27 18:27 Hgb 11.9 L MCV 78 L MCH 24.2 L MCHC 31.1 L RDW 15.9 H Total Protein 8.3 H Discharge - Discharge Clinical Impression: Left sacral iliac tenderness, The left lower quadrant abdominal pain Condition: Good Disposition: HOME, SELF-CARE Instructions: Abdominal Pain ([facility]), Low Back Pain ([facility]) Additional Instructions: warm compress to sore areas stretching and massage to back may help return to the ER if worse or new symtoms copy of labs and imaging given to you Prescriptions: Naproxen 500 mg PO BIDP PRN #30 tablet PRN Reason: Ondansetron HCl [Zofran 4 mg Tablet] 1 - 2 tab PO Q4H PRN #30 tablet PRN Reason: Tramadol HCl [Ultram 50 mg Tablet] 50 mg PO ASDIR PRN #20 tablet PRN Reason: Referrals: RITA PATE MD [ACTIVE STAFF] - Follow up as needed
--- NOTE | 2017-04-16 21:38 | RADIOLOGY REPORT (SQ) ---
EXAM DESCRIPTION: CT ABD/PELVIS WITH IV ONLY COMPLETED DATE/TIME: 04/16/2017 9:01 pm REASON FOR STUDY: concern for diverticulitis COMPARISON: February 2017 TECHNIQUE: CT scan of the abdomen and pelvis performed using helical scanning technique with dynamic intravenous contrast injection. No oral contrast. Images reviewed with lung, soft tissue, and bone windows. Reconstructed coronal and sagittal MPR images reviewed. Delayed images for evaluation of the urinary system also acquired. All images stored on PACS. All CT scanners at this facility use dose modulation, iterative reconstruction, and/or weight based d osing when appropriate to reduce radiation dose to as low as reasonably achievable (ALARA). [facility]: Dose Right [facility]: CareDose [facility]: Dose Right [facility]: Teradose 4D [facility]: [employer] CONTRAST TYPE AND DOSE: 95mL Isovue 370 RENAL FUNCTION: Creatinine 0.85 RADIATION DOSE: 27.65mGy. LIMITATIONS: None. FINDINGS: LOWER CHEST: No significant findings. No nodules or infiltrates. LIVER: Normal size. No masses or dilated ducts. There is fatty infiltration of the liver. SPLEEN: Normal size. No focal lesions. PANCREAS: No masses. No significant calcifications. No adjacent inflammation or peripancreatic fluid collections. Pancreatic duct not dilated. GALLBLADDER: Status post cholecystectomy ADRENAL GLANDS: No significant masses or asymmetry. RIGHT KIDNEY AND URETER: No solid masses. No significant calcifications. No hydronephrosis or hyd roureter. LEFT KIDNEY AND URETER: No solid masses. No significant calcifications. No hydronephrosis or hydr oureter. AORTA AND VESSELS: No aneurysm. No dissection. Renal arteries, SMA, celiac without stenosis. RETROPERITONEUM: No retroperitoneal adenopathy, hemorrhage or masses. BOWEL AND PERITONEAL CAVITY: No masses or inflammatory changes. No free fluid or peritoneal masses. APPENDIX: Status post appendectomy PELVIS: No mass or free fluid. Normal bladder. ABDOMINAL WALL: No masses. Small umbilical hernia is identified containing fat BONES: No significant or acute findings. OTHER: No other significant finding. IMPRESSION: NO SIGNIFICANT OR ACUTE FINDING IN THE ABDOMEN OR PELVIS ON CT SCAN WITH IV CONTRAST. TECHNICAL DOCUMENTATION: JOB ID: [id number] Quality ID # [id number]: Final reports with documentation of one or more dose reduction techniques (e.g., Au tomated exposure control, adjustment of the mA and/or kV according to patient size, use of iterative reconstruction technique) 2010 [employer]- All Rights Reserved
[2017-04-17 06:23] VITALS: BP 118/61
== END 2017-04-16 22:00 | disposition home or self-care (01) ==
LOC: ER 15:11
DX: R10.32 Left lower quadrant pain (principal); R50.9 Fever, unspecified; R29.898 Other symptoms and signs involving the musculoskeletal system; I48.91 Unspecified atrial fibrillation; Z88.5 Allergy status to narcotic agent; Z88.1 Allergy status to other antibiotic agents; Z87.19 Personal history of other diseases of the digestive system; Z90.49 Acquired absence of other specified parts of digestive tract; Z90.710 Acquired absence of both cervix and uterus; Z95.0 Presence of cardiac pacemaker
CPT/HCPCS: 99284; 96361; 96374; 96375; 36415; 87040; 83690; 85025; 80053; 81001; 74177; J2270; J2405; J7030

== ENCOUNTER → 2018-02-12 | Outpatient (CLI) | payer OTHER ==
--- NOTE | 2018-02-12 14:22 | RADIOLOGY REPORT (SQ) ---
EXAM DESCRIPTION: CT SINUSES FOR ENT COMPLETED DATE/TIME: 02/12/2018 1:31 pm REASON FOR STUDY: J01.91 ACUTE RECURRENT SINUSITIS, UNSPECIFIED ( SINUS FUSION PROTOCOL) J01.91 ACU TE RECURRENT SINUSITIS, UNSPECIFIED COMPARISON: None. TECHNIQUE: Noncontrast scanning through the paranasal sinuses using bone algorithm. Reconstructed MPR images reviewed. All images stored on PACS. Images acquired for image guided surgery. All CT scanners at this facility use dose modulation, iterative reconstruction, and/or weight based d osing when appropriate to reduce radiation dose to as low as reasonably achievable (ALARA). [facility]: Dose Right [facility]: CareDose [facility]: Dose Right [facility]: Teradose 4D [facility]: [email or web address] RADIATION DOSE: 48mGy. FINDINGS: NASAL PASSAGES: Clear. No polyps or masses. OSTEOMEATAL UNITS AND NASOFRONTAL DUCTS: There are bilateral agger nasi cells on coronal image 95/371 narrowing the bilateral frontal sinus outlets. There are also bilateral Yoli cells. MAXILLARY SINUSES: Well-pneumatized and clear. Maxillary sinus outlets are narrowed but patent, best shown on coronal image 106/371. ETHMOID SINUSES: Well-pneumatized and clear. SPHENOID SINUSES: Air-fluid level in the right sphenoid sinus. Left sphenoid sinus clear. Pneumatiz ed pterygoid recesses bilaterally. Pneumatized anterior clinoid best shown on axial image 81/139, an d coronal image 167/371. No sphenoethmoid air cells. No pneumatized dorsal sella. FRONTAL SINUSES: Well-pneumatized and clear. MASTOID AIR CELLS: Clear. ORBITS: Normal and symmetrical. NASAL SEPTUM: Very mild rightward nasal septal deviation No nasal septal spurs. TEMPOROMANDIBULAR JOINTS: Normal. TURBINATES: Left pneumatized middle turbinate. MUCOPERIOSTEAL THICKENING: No. OTHER: No other significant findings. IMPRESSION: Air-fluid level in the right sphenoid sinus worrisome for acute sinusitis TECHNICAL DOCUMENTATION: JOB ID: [id number] Quality ID # [id number]: Final reports with documentation of one or more dose reduction techniques (e.g., Au tomated exposure control, adjustment of the mA and/or kV according to patient size, use of iterative reconstruction technique) 2010 [employer]- All Rights Reserved Reading location - IP/workstation name: [email or web address]
== END ==
LOC: RAD 14:00
PROVIDERS: ATTEND Otolaryngology
DX: J01.91 Acute recurrent sinusitis, unspecified (principal); J34.2 Deviated nasal septum; J34.3 Hypertrophy of nasal turbinates; J30.9 Allergic rhinitis, unspecified
CPT/HCPCS: 70486

== ENCOUNTER 2018-03-31 17:49 | Emergency (ER) | payer OTHER ==
--- NOTE | 2018-03-31 18:43 | ER Document Report ---
ED Medical Screen (RME) - General Chief Complaint: Abdominal Pain Stated Complaint: ABDOMINAL PAIN Time Seen by Provider: 03/31/18 18:32 Notes: RAPID MEDICAL EVALUATION DISCLOSURE I have seen this patient as part of a Rapid Medical Evaluation and, if applicable, placed any initially appropriate orders. The patient will be seen and fully evaluated, including a full history and physical exam, by a provider ( in Main ED or Fast Track) when a room becomes available. 62-year-old female PMH diverticulitis here with complaints of left lower quadrant abdominal pain that started 2 weeks ago and has progressively worsened. She has had some nausea but no vomiting. Early this morning she started to have some diarrhea. She denies any fevers chills dysuria hematuria frequency hesitancy. She reports this all started after eating some seeded strawberries and "salad that got recalled. Has had diverticulitis several times in the past requiring colectomy. EXAM Left lower quadrant TTP TRAVEL OUTSIDE OF THE [place] IN LAST 30 DAYS: No COUNTRY TRAVELED TO/FROM: [facility] - Related Data Allergies/Adverse Reactions: codeine Allergy (Severe, Verified 04/16/17 16:29) mycins Allergy (Uncoded 04/16/17 16:29) Past Medical History - Social History Chew tobacco use (# tins/day): No Frequency of alcohol use: None Drug Abuse: None - Past Medical History Cardiac Medical History: Reports: Hx Atrial Fibrillation, Hx Hypercholesterolemia - "borderline" Denies: Hx Coronary Artery Disease, Hx Heart Attack, Hx Hypertension Pulmonary Medical History: Denies: Hx Asthma, Hx Bronchitis, Hx COPD, Hx Pneumonia, Hx Tuberculosis Neurological Medical History: Denies: Hx Cerebrovascular Accident, Hx Seizures Endocrine Medical History: Reports: 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 ", Hx Hypothyroidism Renal/ Medical History: Denies: Hx Peritoneal Dialysis GI Medical History: Reports: Hx Gastroesophageal Reflux Disease Musculoskeltal Medical History: Denies Hx Arthritis Past Surgical History: Reports: Hx Abdominal Surgery - colon removal, hernia repair, Hx Appendectomy, Hx Bowel Surgery, Hx Cholecystectomy, Hx Herniorrhaphy , Hx Hysterectomy, Hx Pacemaker, Other - Neissen fundoplication - Immunizations Hx Diphtheria, Pertussis, Tetanus Vaccination: Yes Physical Exam - Vital signs Vitals: Temp Pulse Resp BP Pulse Ox 98.4 F 79 16 136/76 H 100 03/31/18 17:55 03/31/18 17:55 03/31/18 17:55 03/31/18 17:55 03/31/18 17:55 Course - Vital Signs Vital signs: Temp Pulse Resp BP Pulse Ox 98.4 F 79 16 136/76 H 100 03/31/18 17:55 03/31/18 17:55 03/31/18 17:55 03/31/18 17:55 03/31/18 17:55
[2018-03-31 19:28] LABS: ABSOLUTE BASOPHILS # (AUTO) 0.1 10^3/uL (0.0-0.2); ABSOLUTE EOSINOPHILS # (AUTO) 0.6 10^3/uL (0.0-0.6); ABSOLUTE MONOCYTES (AUTO) 0.5 10^3/uL (0.1-1.4); ABSOLUTE NEUT (AUTO) 3.8 10^3/uL (1.7-8.2); BASOPHILS % (AUTO) 1.3 % (0-2); EOSINOPHILS % (AUTO) 7.2 % (0-6); HEMATOCRIT 40.7 % (36.0-47.0); HEMOGLOBIN 12.9 g/dL (12.0-15.5); LYMPHOCYTES % (AUTO) 37.8 % (13-45); MEAN CORPUSCULAR HEMOGLOBIN 24.8 pg (27.0-33.4); MEAN CORPUSCULAR HGB CONC 31.8 g/dL (32.0-36.0); MEAN CORPUSCULAR VOLUME 78 fl (80-97); MONOCYTES % (AUTO) 6.2 % (3-13); PLATELET COUNT 196 10^3/uL (150-450); RED BLOOD COUNT 5.21 10^6/uL (3.72-5.28); RED CELL DISTRIBUTION WIDTH 16.6 % (11.5-14.0); SEGMENTED NEUTROPHILS % (AUTO) 47.5 % (42-78); TOTAL CELLS COUNTED % (AUTO) 100 %; WHITE BLOOD COUNT 7.9 10^3/uL (4.0-10.5)
--- NOTE | 2018-03-31 19:39 | ER Document Report ---
ED GI/ - General Chief Complaint: Abdominal Pain Stated Complaint: ABDOMINAL PAIN Time Seen by Provider: 03/31/18 18:32 Notes: The patient is a 62-year-old female, past medical history diverticulitis, presents with 2 weeks of worsening left lower quadrant abdominal pain that started after she ate strawberries. She also ate silas lettuce that she thinks was from [facility] where the E. coli outbreak occurred. She had 3 days of diarrhea, but this resolved. She denies fevers, blood in her stool, urinary symptoms, chest pain, shortness of breath or abdominal distention. TRAVEL OUTSIDE OF THE [place] IN LAST 30 DAYS: No COUNTRY TRAVELED TO/FROM: [place] - Related Data Allergies/Adverse Reactions: codeine Allergy (Severe, Verified 04/16/17 16:29) mycins Allergy (Uncoded 04/16/17 16:29) Past Medical History - General Information source: Patient - Social History Smoking Status: Never Smoker Chew tobacco use (# tins/day): No Frequency of alcohol use: None Drug Abuse: None Family History: Reviewed & Not Pertinent Patient has suicidal ideation: No Patient has homicidal ideation: No - Past Medical History Cardiac Medical History: Reports: Hx Atrial Fibrillation, Hx Hypercholesterolemia - "borderline" Denies: Hx Coronary Artery Disease, Hx Heart Attack, Hx Hypertension Pulmonary Medical History: Denies: Hx Asthma, Hx Bronchitis, Hx COPD, Hx Pneumonia, Hx Tuberculosis Neurological Medical History: Denies: Hx Cerebrovascular Accident, Hx Seizures Endocrine Medical History: Reports: 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 ", Hx Hypothyroidism Renal/ Medical History: Denies: Hx Peritoneal Dialysis GI Medical History: Reports: Hx Gastroesophageal Reflux Disease Musculoskeltal Medical History: Denies Hx Arthritis Past Surgical History: Reports: Hx Abdominal Surgery - colon removal, hernia repair, Hx Appendectomy, Hx Bowel Surgery, Hx Cholecystectomy, Hx Herniorrhaphy , Hx Hysterectomy, Hx Pacemaker, Other - Neissen fundoplication - Immunizations Hx Diphtheria, Pertussis, Tetanus Vaccination: Yes Review of Systems - Review of Systems Notes: REVIEW OF SYSTEMS: CONSTITUTIONAL: -fevers, -chills EENT: -eye pain, -difficulty swallowing, -nasal congestion CARDIOVASCULAR: -chest pain, -syncope. RESPIRATORY: -cough, -SOB GASTROINTESTINAL: +LLQ abdominal pain, +nausea, -vomiting, -diarrhea GENITOURINARY: -dysuria, -hematuria MUSCULOSKELETAL: -back pain, -neck pain SKIN: -rash or skin lesions. HEMATOLOGIC: -easy bruising or bleeding. LYMPHATIC: -swollen, enlarged glands. NEUROLOGICAL: -altered mental status or loss of consciousness, -headache, - neurologic symptoms PSYCHIATRIC: -anxiety, -depression. ALL OTHER SYSTEMS REVIEWED AND NEGATIVE. Physical Exam - Vital signs Vitals: Temp Pulse Resp BP Pulse Ox 98.4 F 79 16 136/76 H 100 03/31/18 17:55 03/31/18 17:55 03/31/18 17:55 03/31/18 17:55 03/31/18 17:55 - Notes Notes: PHYSICAL EXAMINATION: GENERAL: Well-appearing, well-nourished and in no acute distress. HEAD: Atraumatic, normocephalic. EYES: Pupils equal round and reactive to light, extraocular movements intact, sclera anicteric, conjunctiva are normal. ENT: nares patent, oropharynx clear without exudates. Moist mucous membranes. NECK: Normal range of motion, supple without lymphadenopathy LUNGS: Breath sounds clear to auscultation bilaterally and equal. No wheezes rales or rhonchi. HEART: Regular rate and rhythm without murmurs ABDOMEN: Soft, mild LLQ tenderness, normoactive bowel sounds. No guarding, no rebound. No masses appreciated. EXTREMITIES: Normal range of motion, no pitting or edema. No cyanosis. NEUROLOGICAL: Cranial nerves grossly intact. Normal speech, normal gait. Normal sensory and motor exams. PSYCH: Normal mood, normal affect. SKIN: Warm, Dry, normal turgor, no rashes or lesions noted. Course - Re-evaluation Re-evalutation: Patient with mild diverticulitis without any complications. Blood work and vital signs are normal and her pain and nausea are under control. She appears suitable for outpatient management of her diverticulitis. Provided her with Cipro, Flagyl, Zofran and [place] for severe pain with strict return precautions. She will call her GI doctor tomorrow for follow-up appointment. - Vital Signs Vital signs: Temp Pulse Resp BP Pulse Ox 97.8 F 85 18 134/66 H 97 03/31/18 21:54 03/31/18 21:54 03/31/18 21:54 03/31/18 21:54 03/31/18 21:54 - Laboratory Result Diagrams: 03/31/18 19:20 03/31/18 19:20 Laboratory results interpreted by me: 03/31/18 03/31/18 19:20 19:20 MCV 78 L MCH 24.8 L MCHC 31.8 L RDW 16.6 H Eosinophils % 7.2 H Sodium 147.1 H AST 47 H Total Protein 8.3 H - Diagnostic Test Radiology reviewed: Image reviewed, Reports reviewed Radiology results interpreted by me: CT A/P: mild diverticulitis Discharge - Discharge Clinical Impression: Diverticulitis Condition: Stable Disposition: HOME, SELF-CARE Additional Instructions: Diverticulitis You have been diagnosed as having diverticulitis. This is an inflammation of a small pouch attached to the colon, called a diverticulum. Many of these small pouches can form on the colon as you get older. They are often caused by constipation. When inflamed or infected, symptoms arise -- usually abdominal pain, constipation or diarrhea, fever, and blood in the stool. Severe diverticulitis may require hospitalization. More mild cases are usually treated with antibiotics and clear liquid diet. As you improve, a diet low in residue (one which forms little stool) is prescribed. When you are better, you should eat a high-fiber diet. Stool softeners ( like Metamucil) are usually recommended. Call the doctor or go to the hospital if there is increasing pain, vomiting , high fever, large amounts of blood passed, or if bowel movements cease. Prescriptions: RX: Ciprofloxacin HCl [Cipro 500 mg Tablet] 500 mg PO BID #20 tablet Hydrocodone/Acetaminophen [[place] 5-325 mg Tablet] 1 tab PO Q6H PRN #10 tablet PRN Reason: Metronidazole [Flagyl 500 mg Tablet] 500 mg PO Q8H #21 tablet Ondansetron [Zofran Odt 4 mg Tablet] 1 - 2 tab PO Q4H PRN #15 tab.rapdis PRN Reason: For Nausea/Vomiting Forms: Elevated Blood Pressure Referrals: JUSTIN MCLAIN PA-C [Primary Care Provider] - Follow up as needed
[2018-03-31 19:40] LABS: APPEARANCE,URINE CLEAR; BILIRUBIN,URINE NEGATIVE (NEGATIVE); COLOR,URINE STRAW; GLUCOSE, URINE NEGATIVE (NEGATIVE); KETONES,URINE NEGATIVE (NEGATIVE); LEUKOCYTE ESTERASE,URINE NEGATIVE (NEGATIVE); NITRITE,URINE NEGATIVE (NEGATIVE); PROTEIN,URINE NEGATIVE (NEGATIVE); URINE SPECIFIC GRAVITY 1.009; UROBILINOGEN,URINE NEGATIVE mg/dL (<2.0)
[2018-03-31 19:54] LABS: ALANINE AMINOTRANSFERASE 18 U/L (9-52); ALBUMIN 4.6 g/dL (3.5-5.0); ALKALINE PHOSPHATASE 115 U/L (38-126); ANION GAP 16 (5-19); ASPARTATE AMINO TRANSFERASE 47 U/L (14-36); BILIRUBIN,DIRECT 0.3 mg/dL (0.0-0.4); BILIRUBIN,TOTAL 0.3 mg/dL (0.2-1.3); BLOOD UREA NITROGEN 11 mg/dL (7-20); CALCIUM 10.1 mg/dL (8.4-10.2); CARBON DIOXIDE 25 mmol/L (22-30); CHLORIDE 106 mmol/L (98-107); GLUCOSE 89 mg/dL (75-110); LIPASE 163.5 U/L (23-300); POTASSIUM 4.2 mmol/L (3.6-5.0); SODIUM 147.1 mmol/L (137-145); TOTAL PROTEIN 8.3 g/dL (6.3-8.2)
[2018-03-31] MEDS ORDERED: ONDANSETRON HCL INJ/PF 4 MG/2 ML SDV IV ONE (20:16)
[2018-03-31] MEDS ORDERED: HYDROCODONE/ACETAMINOPHEN 5-325 MG TABLET PO ONE (20:16)
[2018-03-31] MEDS ORDERED: NORMAL SALINE 1000 ML 1,000 ML IV ONE (20:17)
--- NOTE | 2018-03-31 21:12 | RADIOLOGY REPORT (SQ) ---
EXAM DESCRIPTION: CT ABD/PELVIS WITH IV ONLY COMPLETED DATE/TIME: 03/31/2018 8:31 pm REASON FOR STUDY: LLQ pain; eval diverticulitis COMPARISON: 04/16/2017 TECHNIQUE: CT scan of the abdomen and pelvis performed using helical scanning technique with dynamic intravenous contrast injection. No oral contrast. Images reviewed with lung, soft tissue, and bone windows. Reconstructed coronal and sagittal MPR images reviewed. Delayed images for evaluation of the urinary system also acquired. All images stored on PACS. All CT scanners at this facility use dose modulation, iterative reconstruction, and/or weight based d osing when appropriate to reduce radiation dose to as low as reasonably achievable (ALARA). [facility]: Dose Right [facility]: CareDose [facility]: Dose Right [facility]: Teradose 4D [facility]: [employer] RENAL FUNCTION: GFR > 60. RADIATION DOSE: . LIMITATIONS: None. FINDINGS: LOWER CHEST: No significant findings. No nodules or infiltrates. LIVER: Normal size. No masses. No dilated ducts. SPLEEN: Normal size. No focal lesions. PANCREAS: No masses. No significant calcifications. No adjacent inflammation or peripancreatic fluid collections. Pancreatic duct not dilated. GALLBLADDER: Surgically absent. ADRENAL GLANDS: No significant masses or asymmetry. RIGHT KIDNEY AND URETER: No solid masses. No significant calcifications. No hydronephrosis or hyd roureter. LEFT KIDNEY AND URETER: No solid masses. No significant calcifications. No hydronephrosis or hydr oureter. AORTA AND VESSELS: No aneurysm. No dissection. Renal arteries, SMA, celiac without stenosis. RETROPERITONEUM: No retroperitoneal adenopathy, hemorrhage or masses. BOWEL AND PERITONEAL CAVITY: Mild diverticulitis in the mid sigmoid colon. No free fluid or peritonea l masses. APPENDIX: Normal. PELVIS: Prior hysterectomy. No free fluid. Normal bladder. ABDOMINAL WALL: No masses. Similar small fat containing paraumbilical hernia. BONES: No acute findings. OTHER: No other significant finding. IMPRESSION: Mild diverticulitis in the mid sigmoid colon. No fluid collection. TECHNICAL DOCUMENTATION: JOB ID: [id number] Quality ID # [id number]: Final reports with documentation of one or more dose reduction techniques (e.g., Au tomated exposure control, adjustment of the mA and/or kV according to patient size, use of iterative reconstruction technique) 2010 [email or web address]- All Rights Reserved Reading location - IP/workstation name: [email or web address] CENTERArvia Technology
[2018-03-31 21:54] VITALS: BP 134/66
[2018-03-31] MEDS ORDERED: METRONIDAZOLE 500 MG TABLET PO ONE (21:54)
[2018-03-31] MEDS ORDERED: CIPROFLOXACIN HCL 500 MG TABLET PO ONE (21:54)
== END 2018-03-31 22:05 | disposition home or self-care (01) ==
LOC: ER 17:49
DX: K57.92 Diverticulitis of intestine, part unspecified, without perforation or abscess without bleeding (principal); R10.9 Unspecified abdominal pain; R11.0 Nausea; I48.91 Unspecified atrial fibrillation; E78.00 Pure hypercholesterolemia, unspecified; E03.9 Hypothyroidism, unspecified; Z88.6 Allergy status to analgesic agent; Z88.3 Allergy status to other anti-infective agents; Z90.49 Acquired absence of other specified parts of digestive tract; Z95.0 Presence of cardiac pacemaker
CPT/HCPCS: 99284; 96374; 36415; 83690; 85025; 80053; 81001; 74177; J2405; J7030

== ENCOUNTER → 2018-06-27 | Outpatient (CLI) | payer OTHER | LOC: OD 11:37 | PROVIDERS: ATTEND Nurse Practitioner Acute Care | DX: R30.0 Dysuria (principal) | CPT/HCPCS: 87086 ==

== ENCOUNTER → 2018-07-02 | Outpatient (CLI) | payer OTHER ==
[2018-07-02 10:17] LABS: ABSOLUTE BASOPHILS # (AUTO) 0.1 10^3/uL (0.0-0.2); ABSOLUTE EOSINOPHILS # (AUTO) 0.2 10^3/uL (0.0-0.6); ABSOLUTE LYMPHOCYTES (AUTO) 1.9 10^3/uL (0.5-4.7); ABSOLUTE MONOCYTES (AUTO) 0.3 10^3/uL (0.1-1.4); ABSOLUTE NEUT (AUTO) 1.9 10^3/uL (1.7-8.2); BASOPHILS % (AUTO) 1.3 % (0-2); EOSINOPHILS % (AUTO) 4.7 % (0-6); HEMATOCRIT 36.1 % (36.0-47.0); HEMOGLOBIN 11.5 g/dL (12.0-15.5); MEAN CORPUSCULAR HEMOGLOBIN 24.7 pg (27.0-33.4); MEAN CORPUSCULAR HGB CONC 31.9 g/dL (32.0-36.0); MEAN CORPUSCULAR VOLUME 78 fl (80-97); MONOCYTES % (AUTO) 6.4 % (3-13); PLATELET COUNT 166 10^3/uL (150-450); RED BLOOD COUNT 4.65 10^6/uL (3.72-5.28); RED CELL DISTRIBUTION WIDTH 17.1 % (11.5-14.0); SEGMENTED NEUTROPHILS % (AUTO) 43.6 % (42-78); TOTAL CELLS COUNTED % (AUTO) 100 %; WHITE BLOOD COUNT 4.4 10^3/uL (4.0-10.5)
[2018-07-02 10:33] LABS: ALANINE AMINOTRANSFERASE 18 U/L (9-52); ALBUMIN 3.9 g/dL (3.5-5.0); ALKALINE PHOSPHATASE 69 U/L (38-126); ANION GAP 12 (5-19); ASPARTATE AMINO TRANSFERASE 18 U/L (14-36); BILIRUBIN,DIRECT 0.2 mg/dL (0.0-0.4); BILIRUBIN,TOTAL 0.2 mg/dL (0.2-1.3); BLOOD UREA NITROGEN 16 mg/dL (7-20); C-REACTIVE PROTEIN 5.2 mg/L (<10.0); CALCIUM 9.3 mg/dL (8.4-10.2); CARBON DIOXIDE 22 mmol/L (22-30); CHLORIDE 111 mmol/L (98-107); GLUCOSE 98 mg/dL (75-110); POTASSIUM 4.4 mmol/L (3.6-5.0); SODIUM 145.1 mmol/L (137-145); TOTAL PROTEIN 6.7 g/dL (6.3-8.2)
--- NOTE | 2018-07-02 10:52 | RADIOLOGY REPORT (SQ) ---
EXAM DESCRIPTION: CT ABD/PELVIS COMBO COMPLETED DATE/TIME: 07/02/2018 10:25 am REASON FOR STUDY: UNSPECIFIED ABDOMINAL PAIN R10.9 UNSPECIFIED ABDOMINAL PAIN COMPARISON: [address] abdomen pelvis exams since 2007, most recently 03/31/2018 TECHNIQUE: CT scan of the abdomen and pelvis performed with and without intravenous contrast, and wi thout oral contrast. Contrasted imaging performed helical scanning technique and dynamic intravenous contrast injection. Images reviewed with lung, soft tissue, and bone windows. Reconstructed coronal a nd sagittal MPR images reviewed. Delayed images for evaluation of the urinary system also acquired. A ll images stored on PACS. All CT scanners at this facility use dose modulation, iterative reconstruction, and/or weight based d osing when appropriate to reduce radiation dose to as low as reasonably achievable (ALARA). [facility]: Dose Right [facility]: CareDose [facility]: Dose Right [facility]: Teradose 4D [facility]: DC Devices CONTRAST TYPE AND DOSE: contrast/concentration: Isovue 350.00 mg/ml; Total Contrast Delivered: 88.0 ml; Total Saline Delivered: 69.0 ml RENAL FUNCTION: Creatinine 1.0 RADIATION DOSE: CT Rad equipment meets quality standard of care and radiation dose reduction techniq ues were employed. CTDIvol: 10.9 - 12.2 mGy. DLP: 1837 mGy-cm. . LIMITATIONS: None. FINDINGS: NON-CONTRASTED IMAGING: No significant renal or bladder calcifications. No other significa nt organ calcifications. POST-CONTRASTED IMAGING: LOWER CHEST: No significant findings. No nodules or infiltrates. LIVER: Normal size. No masses. No dilated ducts. SPLEEN: Normal size. No focal lesions. PANCREAS: No masses. No significant calcifications. No adjacent inflammation or peripancreatic fluid collections. Pancreatic duct not dilated. GALLBLADDER: Surgically absent ADRENAL GLANDS: No significant masses or asymmetry. RIGHT KIDNEY AND URETER: No solid masses. Subcentimeter cyst in the anterior right lower pole kidney. No significant calcifications. No hydronephrosis or hydroureter. LEFT KIDNEY AND URETER: No solid masses. No significant calcifications. No hydronephrosis or hydro ureter. AORTA AND VESSELS: No aneurysm. No dissection. Renal arteries, SMA, celiac without stenosis. RETROPERITONEUM: No retroperitoneal adenopathy, hemorrhage or masses. BOWEL AND PERITONEAL CAVITY: Pulse partial sigmoid colectomy. No CT evidence of bowel obstruction or free intraperitoneal air or fluid. Moderate stool throughout the colon. Mild inflammatory changes seen along the distal sigmoid colon 03/31/2018 has resolved. No abscess. APPENDIX: Surgically absent PELVIS: No mass. No free fluid. Normal bladder. Post hysterectomy ABDOMINAL WALL: No masses. No hernias. BONES: No significant or acute findings. OTHER: No other significant finding. IMPRESSION: No acute findings. Inflammation along the distal sigmoid colon seen on 03/31/2018 CT abd omen pelvis has resolved. TECHNICAL DOCUMENTATION: JOB ID: [id number] Quality ID # [id number]: Final reports with documentation of one or more dose reduction techniques (e.g., Au tomated exposure control, adjustment of the mA and/or kV according to patient size, use of iterative reconstruction technique) 2010 [employer]- All Rights Reserved Reading location - IP/workstation name: [email or web address]
[2018-07-02 10:58] LABS: ERYTHROCYTE SEDIMENTATION RATE 8 mm/hr (0-30)
== END ==
LOC: RAD 09:46
PROVIDERS: ATTEND Physician Assistant
DX: R10.9 Unspecified abdominal pain (principal)
CPT/HCPCS: 36415; 74178; 80053; 82565; 85025; 85652; 86140

== ENCOUNTER 2018-07-10 06:37 | Day surgery (SDC) | payer OTHER ==
[~2018-07-10 06:37] MED LIST: LACTATED RINGERS 1000 ML IV PRN; LIDOCAINE 0.5% INJ-PF (5 MG/ML) 50 ML SDV SUBCUT PRN
[2018-07-10] MEDS ORDERED: DIPHENHYDRAMINE HCL 50 MG/ML VIAL ONE (06:45)
[2018-07-10] MEDS ORDERED: MIDAZOLAM 2 MG/2 ML INJ ONE (06:45)
[2018-07-10] MEDS ORDERED: FENTANYL CITRATE INJ/PF 100 MCG/2 ML AMPUL ONE (06:46)
[2018-07-10] MEDS ORDERED: PROPOFOL INJ 200 MG/20 ML VIAL IV ONE (06:47)
[2018-07-10] MEDS ORDERED: DEXAMETHASONE SOD PHOS INJ 10 MG/1 ML VIAL ONE (06:47)
[2018-07-10] MEDS ORDERED: DEXMEDETOMIDINE INJ 80 MCG/20 ML VIAL IV ONE (06:47)
[2018-07-10] MEDS ORDERED: BUPIVACAINE HCL 0.5%/EPI 1:200000 INJ 1.8 ML CARTRIDGE ONE (08:04)
[2018-07-10] MEDS ORDERED: OXYMETAZOLINE HCL 0.05% NASAL SPRAY 15 ML BOTTLE ONE (08:04)
[2018-07-10] MEDS ORDERED: BUPIVACAINE HCL 0.5%-EPI 1:200000 INJ/PF 30 ML VIAL ONE (08:04)
[2018-07-10] MEDS ORDERED: MINERAL OIL (STERILE) 10 ML VIAL ONE (08:04)
[2018-07-10] MEDS ORDERED: CEFAZOLIN 2 GM/D5W RTU 2 GM/50 ML RTUPB IV PRN (08:15)
[2018-07-10] MEDS ORDERED: SCOPOLAMINE HYDROBROMIDE 1.5 MG PATCH.TD72 TD PRN (08:23)
[2018-07-10] MEDS ORDERED: PROMETHAZINE HCL INJ 25 MG/1 ML VIAL ONE (13:04)
--- NOTE | 2018-07-11 17:36 | SURGICARE OPERATIVE REPORT E ---
[facility] Operative Report NAME: MANNY RAMÍREZ AGE: 62Y DATE OF SURGERY: 07/10/2018 ROOM: PREOPERATIVE DIAGNOSES: 1. Acute recurrent sinusitis. 2. Chronic sinusitis. 3. Nasal septal deviation, acquired. 4. Bilateral inferior turbinate hypertrophy. 5. Bilateral middle turbinate hypertrophy along with a left marybeth bullosa. 6. Chronic nasal dyspnea. POSTOPERATIVE DIAGNOSES: 1. Acute recurrent sinusitis. 2. Chronic sinusitis. 3. Nasal septal deviation, acquired. 4. Bilateral inferior turbinate hypertrophy. 5. Bilateral middle turbinate hypertrophy along with a left marybeth bullosa. 6. Chronic nasal dyspnea. OPERATION: 1. Image-guidance functional endoscopic sinus surgery consisting of the followin. Bilateral maxillary enterostomies via bilateral transnasal rigid surgical endoscopy. 3. Right anterior ethmoidectomy via transnasal rigid surgical endoscopy. 4. Bilateral transnasal/intranasal frontal sinus balloon sinuplasty via rigid transnasal/intranasal surgical endoscopy. 5. Bilateral sphenoid balloon sinuplasty via bilateral transnasal rigid surgical endoscopy. 6. Placement of a left and right PROPEL steroid-eluting sinus stent, one per site, via bilateral transnasal rigid surgical endoscopy. SURGEON: JUAN A CHERY D.O. ANESTHESIA: General endotracheal tube. The Anesthesia staff was Mat VELASQUEZ. ESTIMATED BLOOD LOSS: 120 mL. FLUIDS: 1200 mL. COMPLICATIONS: None. DRAINS: None. COUNTS: Sponge count verified. Needle count verified. TISSUE REMOVED OR ALTERED: Materials forwarded as specimen: None. FINDINGS: 1. Right nasal septal deviation involving bone and cartilage. 2. There were no sinonasal polyps or sinus discharge noted. 3. On the right side in the area of the inferior region of the bony orbit, there was an area of bone that was thin/dehiscent. Upon performing the right maxillary antrostomy portion of the case, there was a very small amount of orbital fat that was identified. There were no other concerns than this, which was maintained in a clear field of view as the remainder of the right-sided endoscopic sinus surgery portion of the case was performed. 4. The medial maxillary sinus awad were within oblique orientation with lateralized bowing effect to them, which also affected the lie of the maxillary sinus os. INDICATIONS: This is a 62-year-old white female, who was seen and evaluated in the [place] [facility]. The patient had been referred for and she complained of a history of acute recurrent sinusitis episodes occurring each year, being treated with antibiotics, and these have gone on each year over the years. The patient also suffers from a history of chronic rhinosinusitis symptoms over the years. The patient is also with difficult nasal airflow and nasal septal deviation and turbinate hypertrophy. The patient is also with a history of allergies and has undergone allergy immunotherapy before, which she is in the process of restarting. The patient underwent clinic flexible endoscopy and CT sinus imaging with the addition of a left marybeth bullosa being identified and obliquely oriented medial maxillary sinus awad and os. After extensive discussion with the patient, recommendation and plan was made to proceed with image-guidance functional endoscopic sinus surgery to include balloon sinuplasty, septoplasty, turbinate reductions, and left marybeth bullosa reduction. The procedures and all of their risks and complications were all discussed in detail with the patient. She voiced an understanding of the described surgical plan, agreed to proceed, and consent was obtained. PROCEDURE: At this point, the patient was taken to the main operating room and was placed on the operating room table in the supine position. Appropriate monitors were placed. Using MAC and IV access, general anesthesia was induced. The patient was then transorally intubated without difficulty. The table was oriented for image-guided sinus surgery. The patient underwent a nasal examination with injection of local anesthetic to establish a nasal block. Two Afrin-soaked neuro patties were placed. At this point, the patient was prepped and draped in the usual fashion for image-guidance nasal and sinus surgery. The image-guidance system was set up and tested appropriately before beginning the case. At this point, the two neuro patties were withdrawn, and the patient underwent a kimberly-transection incision. There was elevation of the mucoperichondrial and mucoperiosteal flaps without difficulty. The bony cartilaginous junction was identified, divided, and the most deviated portions of septal cartilage and bone were removed without difficulty. There was a greater than 1.5 x 1.5 cm cartilaginous L-strut that was preserved. At this point, the turbinate bipolar wand was used to make 2 passes in each inferior turbinate followed by use of the freer elevator to outfracture each inferior turbinate. The anterior portion of each inferior turbinate was entered with a pair of Jh scissors followed by submucous elevation with a freer elevator. At this point, the turbinate micro-debridement system at a setting of 1500 RPM was used to perform submucous resection on each side. Next, the redundant/excess mucosa was trimmed and the margins were re-approximated with 5-0 chromic suture. At this point, the image-guidance functional endoscopic sinus surgery was performed in the following manner: The bilateral transnasal rigid surgical endoscopy. With use of the micro-debrider system at a setting of 3000 RPM and sinus surgical instrumentation, the anterior portion of the middle turbinates were reduced, and the left marybeth bullosa lateral aspect was resected. At this point, this instrumentation was also used to perform the maxillary antrostomies. As noted above, in the process of performing the right maxillary antrostomy, there was an area of bony orbit in the inferior aspect adjacent to the maxillary antrostomy location which was thin/dehiscent. During this process of operating in this area, a very small amount of orbital fat was identified. There was great care taken to further open the sinus areas involving the anterior ethmoid air cells so that this area could be clearly identified both surgically and during postoperative visits as well. Once complete, the frontal sinus image-guidance balloon sinuplasty system was introduced, and this was performed on each side in the area of the frontal sinus recess with the balloon being inflated to 12 atmospheres in 2 positions on each side. This was done under direct visualization with bilateral transnasal rigid surgical endoscopies. Once complete, this system was withdrawn and the image-guidance sphenoid balloon sinuplasty system was introduced, and the sphenoid os on each side was dilated with a balloon used in 2 positions at 12 atmospheres each time. Once complete, the sphenoid balloon sinuplasty system was withdrawn. This was again performed under direct surgical endoscopic visualization. The sinuses were again thoroughly irrigated and suctioned, and there was adequate hemostasis noted. Next, there was a PROPEL steroid-eluting stent placed on the left-hand maxillary antrostomy surgical site and in the right anterior ethmoidectomy. Surgical area and the stent was extended into the right maxillary antrostomy location, and it also covered the area where there was a very small amount of orbital fat noted to support this area during healing. Next, the couple flaps were brought back into the midline and cartilage was placed back between the mucosal flaps to be banked. The transfixion incision was re-approximated with chromic suture. Next, 1 Miller silicone nasal splint with Bacitracin ointment was placed per side, and these were secured at the caudal aspect with 4-0 Prolene suture. The patient's nose was then cleaned and dried, and she was then returned to the Anesthesia staff and was allowed to emerge from general anesthesia. The patient was extubated in the main operating room and was then transported to the Postoperative Anesthesia Recovery Unit in stable condition. There were no complications. DICTATING PHYSICIAN: JUAN A CHERY D.O. [id number] PHY#: [id number] ID: [id number] JOB#: [id number] ACCT: [id number] cc:JUAN A CHERY D.O. >
== END 2018-07-10 14:10 | disposition home or self-care (01) ==
LOC: SC 06:37
PROVIDERS: ATTEND Otolaryngology
DX: J01.91 Acute recurrent sinusitis, unspecified (principal); J35.01 Chronic tonsillitis; J35.8 Other chronic diseases of tonsils and adenoids; J34.89 Other specified disorders of nose and nasal sinuses; J34.3 Hypertrophy of nasal turbinates; I10 Essential (primary) hypertension; E78.5 Hyperlipidemia, unspecified; E03.9 Hypothyroidism, unspecified; G43.909 Migraine, unspecified, not intractable, without status migrainosus; K21.9 Gastro-esophageal reflux disease without esophagitis; E11.9 Type 2 diabetes mellitus without complications; I48.91 Unspecified atrial fibrillation; G47.33 Obstructive sleep apnea (adult) (pediatric); I49.9 Cardiac arrhythmia, unspecified; Z79.899 Other long term (current) drug therapy; Z79.84 Long term (current) use of oral hypoglycemic drugs; Z87.891 Personal history of nicotine dependence; Z88.1 Allergy status to other antibiotic agents; Z88.6 Allergy status to analgesic agent; Z88.5 Allergy status to narcotic agent
CPT/HCPCS: 82962; 31256; 31254; 31276; 31297; J2250; J3490 ×5; J1200; J3010; J2550; J2704; J1100; J0690; 160

== ENCOUNTER → 2018-12-23 | Day surgery (SDC) | payer OTHER ==
[~2018-12-23] MED LIST changes: -LACTATED RINGERS 1000 ML IV PRN; -LIDOCAINE 0.5% INJ-PF (5 MG/ML) 50 ML SDV SUBCUT PRN; +LIDOCAINE 1% INJ-PF (10 MG/ML) 30 ML SDV ONE
--- NOTE | 2018-12-25 15:39 | WOMENS IMAGING REPORT ---
EXAM DESCRIPTION: U/S BREAST BX; RIGHT DIG DX MAMMO NO CHG COMPLETED DATE/TIME: 12/23/2018 2:33 pm; 12/23/2018 2:22 pm REASON FOR STUDY: N63.10,INCONCLUSIVE MAMMOGRAM; N63.10 S/P RIGHT US BX FOR CLIP PLACEMENT N63.10 U NSPECIFIED LUMP IN THE RIGHT BREAST, UNSPECIFIED JENNIFER COMPARISON: Outside mammograms and breast ultrasound TECHNIQUE: The procedure was discussed with the patient and the patient agreed to proceed. The patient was scanned and the area of interest in the 6 o'clock position 2 to 3 cm from the nipple of the right breast was localized. This correlates with the area of concern on prior imaging studies . This area was targeted for ultrasound-guided core biopsy. After sterile skin prep and 2.5 mL local lidocaine 1% for skin and deep tissue anesthesia, a 14 gauge coaxial core biopsy needle was used to obtain several cores of tissue from the lesion. Under ultras ound guidance, a ribbon clip was placed in the areas sampled. There were no immediate post-procedure complications. MAMMOGRAM: Post-procedure two view mammogram was acquired in the digital mammogram suite. The clip wa s in the expected location. No significant hematoma. Pathology yields a diagnosis of focal fat necrosis Pathology is concordant. LIMITATIONS: None. FINDINGS: Ultrasound guided breast biopsy as described above. POST PROCEDURE MAMMOGRAMS FOR MARKER PLACEMENT: Yes IMPRESSION: ULTRASOUND-GUIDED CORE BIOPSY OF THE RIGHT BREAST YIELDS A DIAGNOSIS OF BENIGN FOCAL FAT NECROSIS. BI-RADS 2, BENIGN FINDINGS PATIENT SHOULD RESUME YEARLY BILATERAL SCREENING MAMMOGRAPHY/TOMOSYNTHESIS COMMENT: COMMUNICATION: RESULTS WERE DISCUSSED DIRECTLY WITH THE PATIENT, 1330 HOURS 12/25/2018. SHE UNDERSTANDS THAT THIS IS A BENIGN DIAGNOSIS, AND THAT SHE SHOULD RETURN TO YEARLY BILATERAL SCREENING MAMMOGRAPHY Patient medication list reviewed: Yes- Quality ID# [id number]:Eligible professional attests to documenting i n the medical record they obtained, updated, or reviewed the patient's current medications. TECHNICAL DOCUMENTATION: JOB ID: [id number] [employer]- All Rights Reserved Reading location - IP/workstation name: [email or web address]
== END ==
LOC: WI 13:07
PROVIDERS: ATTEND Surgery
DX: N63.10 Unspecified lump in the right breast, unspecified quadrant (principal); N64.1 Fat necrosis of breast
CPT/HCPCS: 88342 ×2; 88305 ×2; 19083; J3490

== ENCOUNTER → 2019-01-18 | Outpatient (CLI) | payer OTHER ==
--- NOTE | 2019-01-18 13:55 | RADIOLOGY REPORT (SQ) ---
EXAM DESCRIPTION: CHEST PA/LATERAL COMPLETED DATE/TIME: 01/18/2019 1:44 pm REASON FOR STUDY: COUGH COMPARISON: 06/05/2013 EXAM PARAMETERS: NUMBER OF VIEWS: two views TECHNIQUE: Digital Frontal and Lateral radiographic views of the chest acquired. RADIATION DOSE: NA LIMITATIONS: none FINDINGS: LUNGS AND PLEURA: No opacities, masses or pneumothorax. No pleural effusion. MEDIASTINUM AND HILAR STRUCTURES: No masses or contour abnormalities. HEART AND VASCULAR STRUCTURES: Heart normal size. No evidence for failure. BONES: No acute findings. HARDWARE: Loop recorder device overlies the midline lower chest/thorax, new finding since the prior study. OTHER: No other significant finding. IMPRESSION: 1. NO SIGNIFICANT RADIOGRAPHIC FINDING IN THE CHEST. TECHNICAL DOCUMENTATION: JOB ID: [id number] [employer]- All Rights Reserved Reading location - IP/workstation name: [email or web address]
== END ==
LOC: OD 13:31
PROVIDERS: ATTEND Nurse Practitioner Acute Care
DX: R30.0 Dysuria (principal); R05 Cough
CPT/HCPCS: 71046; 87086

== ENCOUNTER 2019-03-23 04:52 | Emergency (ER) | payer OTHER ==
[2019-03-23] MEDS ORDERED: ASPIRIN 81 MG TABLET, CHEWABLE PO ONE (05:11)
[2019-03-23] MEDS ORDERED: ONDANSETRON 4 MG TAB.RAPDIS PO ONE (05:11)
--- NOTE | 2019-03-23 05:13 | ER Document Report ---
ED Medical Screen (RME) - General Chief Complaint: Chest Pain Stated Complaint: CHEST PAIN Time Seen by Provider: 03/23/19 05:01 Primary Care Provider: LUBA LEYVA NP [Primary Care Provider] - Follow up as needed Notes: 63-year-old female chief complaint of chest pain that woke her up from sleep this morning at about 2 AM. Pain was short-lived, sharp, over the left side of her chest. She reports some nausea. Denies vomiting. 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 Had a negative stress test last year. TRAVEL OUTSIDE OF THE [place] IN LAST 30 DAYS: No COUNTRY TRAVELED TO/FROM: [employer] - Related Data Allergies/Adverse Reactions: codeine Allergy (Severe, Verified 07/06/18 13:12) mycins Allergy (Mild, Uncoded 07/06/18 13:12) Past Medical History - Past Medical History Cardiac Medical History: Reports: Hx Atrial Fibrillation, Hx Hype rcholesterolemia - "borderline", Hx Hypertension - HAS LINQ MONITOR Denies: Hx Coronary Artery Disease, Hx Heart Attack Pulmonary Medical History: Denies: Hx Asthma, Hx Bronchitis, Hx COPD, Hx Pneumonia, Hx Tuberculosis Neurological Medical History: Denies: Hx Cerebrovascular Accident, Hx Seizures Endocrine Medical History: Reports: 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", Hx Hypothyroidism Renal/ Medical History: Denies: Hx Peritoneal Dialysis GI Medical History: Reports: Hx Gastroesophageal Reflux Disease, Hx Hiatal Hernia. Denies: Hx Hepatitis, Hx Ulcer Musculoskeltal Medical History: Denies Hx Arthritis Infectious Medical History: Denies: Hx Hepatitis Past Surgical History: Reports: Hx Abdominal Surgery - colon removal, hernia repair, Hx Appendectomy, Hx Bowel Surgery, Hx Cholecystectomy, Hx Herniorrhaphy, Hx Hysterectomy, Other - Neissen fundoplication. Denies: Hx Mastectomy, Hx Open Heart Surgery, Hx Pacemaker - Immunizations Hx Diphtheria, Pertussis, Tetanus Vaccination: Yes Physical Exam - Cardiovascular Rhythm: Regular. No: Tachycardia Heart sounds: Normal auscultation, S1 appreciated, S2 appreciated Course - Re-evaluation Re-evalutation: I have greeted and performed a rapid initial assessment of this patient. A comprehensive ED assessment and evaluation of the patient, analysis of test results and completion of the medical decision making process will be conducted by additional ED providers. Doctor's Discharge - Discharge Referrals: LUBA LEYVA, MACHINE RECORDS UNITS SUPERVISOR [Primary Care Provider] - Follow up as needed
[2019-03-23] MEDS ORDERED: ONDANSETRON HCL INJ/PF 4 MG/2 ML SDV IV ONE (05:22)
[2019-03-23 05:31] LABS: ABSOLUTE BASOPHILS # (AUTO) 0.1 10^3/uL (0.0-0.2); ABSOLUTE EOSINOPHILS # (AUTO) 0.3 10^3/uL (0.0-0.6); ABSOLUTE LYMPHOCYTES (AUTO) 2.5 10^3/uL (0.5-4.7); ABSOLUTE MONOCYTES (AUTO) 0.4 10^3/uL (0.1-1.4); ABSOLUTE NEUT (AUTO) 3.6 10^3/uL (1.7-8.2); BASOPHILS % (AUTO) 1.2 % (0-2); EOSINOPHILS % (AUTO) 4.1 % (0-6); HEMATOCRIT 38.3 % (36.0-47.0); HEMOGLOBIN 12.4 g/dL (12.0-15.5); MEAN CORPUSCULAR HGB CONC 32.3 g/dL (32.0-36.0); MEAN CORPUSCULAR VOLUME 77 fl (80-97); MONOCYTES % (AUTO) 5.8 % (3-13); PLATELET COUNT 177 10^3/uL (150-450); RED BLOOD COUNT 4.95 10^6/uL (3.72-5.28); RED CELL DISTRIBUTION WIDTH 15.9 % (11.5-14.0); SEGMENTED NEUTROPHILS % (AUTO) 52.9 % (42-78); TOTAL CELLS COUNTED % (AUTO) 100 %; WHITE BLOOD COUNT 6.9 10^3/uL (4.0-10.5)
[2019-03-23 05:47] LABS: ALANINE AMINOTRANSFERASE 20 U/L (9-52); ALBUMIN 4.1 g/dL (3.5-5.0); ALKALINE PHOSPHATASE 93 U/L (38-126); ANION GAP 12 (5-19); ASPARTATE AMINO TRANSFERASE 14 U/L (14-36); BILIRUBIN,DIRECT 0.2 mg/dL (0.0-0.4); BILIRUBIN,TOTAL 0.3 mg/dL (0.2-1.3); BLOOD UREA NITROGEN 11 mg/dL (7-20); CALCIUM 9.7 mg/dL (8.4-10.2); CARBON DIOXIDE 23 mmol/L (22-30); CHLORIDE 110 mmol/L (98-107); GLUCOSE 99 mg/dL (75-110); POTASSIUM 4.1 mmol/L (3.6-5.0); SODIUM 145.1 mmol/L (137-145); TOTAL PROTEIN 7.1 g/dL (6.3-8.2)
--- NOTE | 2019-03-23 05:56 | RADIOLOGY REPORT (SQ) ---
EXAM DESCRIPTION: XR CHEST 1 VIEW COMPLETED DATE/TME: 03/23/2019 05:11 CLINICAL HISTORY: 63 years Female, chest pain COMPARISON: 01/18/19 NUMBER OF VIEWS/TECHNIQUE: 1/AP FINDINGS: Adequate lung volume, clear parenchyma, normal cardiac silhouette, and intact bony thorax. Atherosclerotic vascular disease. IMPRESSION: No acute cardiopulmonary findings.
--- NOTE | 2019-03-23 06:03 | ER Document Report ---
ED General - General Chief Complaint: Chest Pain Stated Complaint: CHEST PAIN Time Seen by Provider: 03/23/19 05:01 Primary Care Provider: LUBA LEYVA, CHIEF LIBRARIAN CIRCULATION DEPARTMENT [NURSE PRACTITIONER] - Follow up as needed (And your racing manager tomorrow as scheduled please let them know you had a normal EKG and troponin test) Notes: 63-year-old female presents with "craziness in my chest" that she describes as intermittent chest pressure on the left side under her breast, with intermittent sharp pain which lasts seconds. It woke her up this morning lasted 10 seconds and went away. She has no shortness of breath leg swelling or cough. She has a history, apparently, peripheral arterial disease but is had a negative stress test inside of 2 years and a negative cath about 5 years ago. He actually has an appoint with cardiology tomorrow. She did say that she flew out of the country in January, but she denies leg swelling. TRAVEL OUTSIDE OF THE [place] IN LAST 30 DAYS: No COUNTRY TRAVELED TO/FROM: [employer] - Related Data Allergies/Adverse Reactions: codeine Allergy (Severe, Verified 07/06/18 13:12) mycins Allergy (Mild, Uncoded 07/06/18 13:12) Past Medical History - Social History Smoking Status: Never Smoker Family History: Reviewed & Not Pertinent Patient has suicidal ideation: No Patient has homicidal ideation: No - Past Medical History Cardiac Medical History: Reports: Hx Atrial Fibrillation, Hx Hypercholesterolemia - "borderline", Hx Hypertension - HAS LINQ MONITOR Denies: Hx Coronary Artery Disease, Hx Heart Attack Pulmonary Medical History: Denies: Hx Asthma, Hx Bronchitis, Hx COPD, Hx Pneumonia, Hx Tuberculosis Neurological Medical History: Denies: Hx Cerebrovascular Accident, Hx Seizures Endocrine Medical History: Reports: 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", Hx Hypothyroidism Renal/ Medical History: Denies: Hx Peritoneal Dialysis GI Medical History: Reports: Hx Gastroesophageal Reflux Disease, Hx Hiatal Hernia. Denies: Hx Hepatitis, Hx Ulcer Musculoskeletal Medical History: Denies Hx Arthritis Infectious Medical History: Denies: Hx Hepatitis Past Surgical History: Reports: Hx Abdominal Surgery - colon removal, hernia repair, Hx Appendectomy, Hx Bowel Surgery, Hx Cholecystectomy, Hx Herniorrhaphy, Hx Hysterectomy, Other - Neissen fundoplication. Denies: Hx Mastectomy, Hx Open Heart Surgery, Hx Pacemaker - Immunizations Hx Diphtheria, Pertussis, Tetanus Vaccination: Yes Review of Systems - Review of Systems Notes: REVIEW OF SYSTEMS GEN: Denies fever, chills, weight loss ENT: Denies sore throat, nasal discharge, ear pain EYES: Denies blurry vision, eye pain, discharge CV: Pain occasionally radiating to the left jaw, no pleuritic component RESP: Denies cough, shortness of breath, wheezing GI: Denies abdominal pain, nausea, vomiting, diarrhea MSK: Denies joint pain/swelling, edema, SKIN: Denies rash, skin lesions LYMPH: Denies swollen glands/lymph nodes NEURO: Denies headache, focal weakness or numbness, dizziness PSYCH: Denies depression, suicidal or homicidal ideation PHYSICAL EXAMINATION General: No acute distress, well-nourished Head: Atraumatic, normocephalic ENT: Mouth normal, oropharynx moist, no exudates or tonsillar enlargement Eyes: Conjunctiva normal, pupils equal, lids normal Neck: No JVD, supple, no guarding CVS: Normal rate, regular rhythm, no murmurs Resp: No resp distress, equal and normal breath sounds bilaterally GI: Nondistended, soft, no tenderness to palpation, no rebound or guarding Ext: No deformities, no edema, normal range of motion in upper and lower ext Back: No CVA or midline TTP Skin: No rash, warm Lymphatic: No lymphadeopathy noted Neuro: Awake, alert. Face symmetric. GCS 15. Physical Exam - Vital signs Vitals: Resp Pulse Ox 13 98 03/23/19 05:26 03/23/19 05:26 Course - Re-evaluation Re-evalutation: 03/23/19 06:02 63-year-old female presents with atypical chest pain, reproducible on exam with components of both dull and sharp nonpleuritic. She has little or no risk factor for pulmonary embolus, but does have apparent peripheral arterial disease placing her at risk for coronary artery disease. Her recent stress test lowers the likelihood of this being ACS as does the normal EKG and troponin and the reversibility of her pain. Her heart score, based on her age, is 3, including risk factors, but she has an appointment tomorrow with cardiology and I believe she is appropriate for discharge. I have discussed with the patient there likely diagnosis, aftercare plan, follow-up plans and my usual and customary return precautions. They verbalized understanding of this. 03/23/19 06:33 His work-up is negative right now. - Vital Signs Vital signs: Temp Pulse Resp BP Pulse Ox 14 126/59 H 99 03/23/19 06:01 03/23/19 06:01 03/23/19 06:01 - Laboratory Result Diagrams: 03/23/19 05:15 03/23/19 05:15 Laboratory results interpreted by me: 03/23/19 03/23/19 05:15 05:15 MCV 77 L MCH 25.0 L RDW 15.9 H Sodium 145.1 H Chloride 110 H Est GFR (Non-Af Amer) 56 L - Diagnostic Test Radiology reviewed: Image reviewed, Reports reviewed - EKG Interpretation by Me EKG shows normal: Sinus rhythm Rate: Normal Rhythm: NSR When compared to previous EKG there are: No significant change - Specifically no changes in the ST segments or T waves Discharge - Discharge Clinical Impression: Chest pain, unspecified Qualifiers: Chest pain type: other chest pain Qualified Code(s): R07.89 - Other chest pain; R07.8 - Other chest pain Condition: Good Disposition: HOME, SELF-CARE Instructions: Chest Pain of Unclear Cause ([facility]) Referrals: LUBA LEYVA NP [NURSE PRACTITIONER] - Follow up as needed (And your racing manager tomorrow as scheduled please let them know you had a normal EKG and troponin test)
[2019-03-23 06:27] VITALS: BP 126/59
--- NOTE | 2019-03-23 17:44 | EKG REPORT ---
SEVERITY:- NORMAL ECG - SINUS RHYTHM : Confirmed by: Michell Jade MD 23-Mar-2019 17:42:32
== END 2019-03-23 06:34 | disposition home or self-care (01) ==
LOC: ER 04:52
DX: R07.89 Other chest pain (principal); I48.91 Unspecified atrial fibrillation; E78.00 Pure hypercholesterolemia, unspecified; E03.9 Hypothyroidism, unspecified; Z88.6 Allergy status to analgesic agent; Z88.3 Allergy status to other anti-infective agents; Z90.49 Acquired absence of other specified parts of digestive tract
CPT/HCPCS: 93005; 99285; 96374; 36415; 85025; 80053; 84484; 71045; 93010; J2405

== ENCOUNTER 2019-04-09 09:30 | Day surgery (SDC) | payer OTHER ==
[~2019-04-09 09:30] MED LIST changes: -LIDOCAINE 1% INJ-PF (10 MG/ML) 30 ML SDV ONE; +PROPOFOL INJ 200 MG/20 ML VIAL IV ONE
[2019-04-09] MEDS ORDERED: PROPOFOL INJ 200 MG/20 ML VIAL IV ONE (11:09)
--- NOTE | 2019-04-09 11:58 | Operative Report ---
Operative Report DATE OF SURGERY: 04/09/19 Operative Report: The risks, benefits and alternatives of the procedure including the risk of bleeding, perforation requiring surgery have been explained to the patient in detail and informed consent has been obtained. The patient is placed in the left, lateral decubital position. Timeout was called. Propofol medication is administered. Rectal examination is done which did not reveal any masses, tears or fissures. An Olympus videoscope was introduced into the patient's rectum. The scope was then carefully advanced all the way to the cecum. The cecum was identified by the usual anatomical landmarks including the ileocecal valve as well as the appendiceal office. Photodocumentation is obtained. The scope was then sequentially pulled back via the various segments of the colon including the ascending colon, hepatic flexure, transverse colon, splenic flexure, d escending colon and finally into the rectosigmoid portions of the colon. Retroflexion maneuvers performed. PREOPERATIVE DIAGNOSIS: Right lower quadrant to pelvic pain POSTOPERATIVE DIAGNOSIS: Mild right side colon inflammation status post biopsy. Diverticulosis without any evidence of diverticulitis. Internal hemorrhoids. What appears to be anastomosis on the left side of the colon that appears to be normal OPERATION: Colonoscopy with biopsy SURGEON: JONNY APODACA ANESTHESIA: LMAC TISSUE REMOVED OR ALTERED: As noted above. COMPLICATIONS: None. ESTIMATED BLOOD LOSS: None. INTRAOPERATIVE FINDINGS: As noted above. PROCEDURE: Patient tolerated the procedure well. No immediate postprocedure complications are noted. Patient is complaining of similar right lower quadrant pain following the procedure. However she is passing flatus We will go ahead and get a abdominal film to rule out etiology. We will see whether the patient wants to stay through the weekend to get a further work-up done with respect to her problem. Otherwise will discharge home Resume regular diet Resume regular activity level Wait on the biopsies Further recommendations to follow
[2019-04-09 12:48] VITALS: BP 136/56
--- NOTE | 2019-04-09 12:54 | RADIOLOGY REPORT (SQ) ---
EXAM DESCRIPTION: KUB/ABDOMEN (SINGLE VIEW) COMPLETED DATE/TIME: 04/09/2019 12:42 pm REASON FOR STUDY: RLQ ABDOMINAL PAIN R10.31 RIGHT LOWER QUADRANT PAIN COMPARISON: None. NUMBER OF VIEWS: One view. TECHNIQUE: Supine radiographic image of the abdomen acquired. LIMITATIONS: None. FINDINGS: BOWEL GAS PATTERN: Nonobstructive pattern. There is air in the colon from the colonoscopy . CALCIFICATIONS: No suspicious calcifications. SOFT TISSUES: No gross mass or suggestion of organomegaly. HARDWARE: None in the abdomen. BONES: No acute fracture. No worrisome bone lesions. OTHER: No free air is appreciated in the abdomen. IMPRESSION: NO RADIOGRAPHIC EVIDENCE FOR ACUTE ABDOMINAL DISEASE. TECHNICAL DOCUMENTATION: JOB ID: [id number] [employer]- All Rights Reserved Reading location - IP/workstation name: [email or web address]
== END 2019-04-09 13:13 | disposition home or self-care (01) ==
LOC: END 09:30
PROVIDERS: ATTEND Internal Medicine Gastroenterology
DX: K52.9 Noninfective gastroenteritis and colitis, unspecified (principal); K57.30 Diverticulosis of large intestine without perforation or abscess without bleeding; K64.8 Other hemorrhoids; K21.9 Gastro-esophageal reflux disease without esophagitis; E11.9 Type 2 diabetes mellitus without complications; E07.9 Disorder of thyroid, unspecified; I47.1 Supraventricular tachycardia; G47.30 Sleep apnea, unspecified; G43.909 Migraine, unspecified, not intractable, without status migrainosus; Z87.891 Personal history of nicotine dependence; Z79.82 Long term (current) use of aspirin; Z79.84 Long term (current) use of oral hypoglycemic drugs
CPT/HCPCS: 45380; 88305 ×2; 74018; J2704

== ENCOUNTER → 2019-04-16 | Outpatient (CLI) | payer OTHER ==
--- NOTE | 2019-04-16 11:00 | RADIOLOGY REPORT (SQ) ---
EXAM DESCRIPTION: CT ABD/PELVIS WITH IV ORAL COMPLETED DATE/TIME: 04/16/2019 9:06 am REASON FOR STUDY: R10.9 UNSPECIFIED ABDOMINAL PAIN R10.9 UNSPECIFIED ABDOMINAL PAIN COMPARISON: 07/02/2018 TECHNIQUE: CT scan of the abdomen and pelvis performed with intravenous and oral contrast using rashid yung scanning technique with dynamic intravenous contrast injection. Images reviewed with lung, soft t issue, and bone windows. Reconstructed coronal and sagittal MPR images reviewed. Delayed images for e valuation of the urinary system also acquired. All images stored on PACS. All CT scanners at this facility use dose modulation, iterative reconstruction, and/or weight based d osing when appropriate to reduce radiation dose to as low as reasonably achievable (ALARA). [facility]: Dose Right [facility]: CareDose [facility]: Dose Right [facility]: Teradose 4D [facility]: Cloudsnap CONTRAST TYPE AND DOSE: contrast/concentration: Isovue mg/ml; Total Contrast Delivered: 94.0 ml; To fausto Saline Delivered: 71.0 ml RENAL FUNCTION: GFR > 60. RADIATION DOSE: CT Rad equipment meets quality standard of care and radiation dose reduction techniq ues were employed. CTDIvol: 12.8 - 14.9 mGy. DLP: 1476 mGy-cm. . LIMITATIONS: None. FINDINGS: LOWER CHEST: No significant findings. No nodules or infiltrates. LIVER: Normal size. No masses. No dilated ducts. SPLEEN: Normal size. No focal lesions. PANCREAS: No masses. No significant calcifications. No adjacent inflammation or peripancreatic fluid collections. Pancreatic duct not dilated. GALLBLADDER: Surgically absent. ADRENAL GLANDS: No significant masses or asymmetry. RIGHT KIDNEY AND URETER: No solid masses. No significant calcifications. No hydronephrosis or hyd roureter. LEFT KIDNEY AND URETER: No solid masses. No significant calcifications. No hydronephrosis or hydr oureter. AORTA AND VESSELS: No aneurysm. No dissection. Renal arteries, SMA, celiac without stenosis. RETROPERITONEUM: No retroperitoneal adenopathy, hemorrhage or masses. BOWEL AND PERITONEAL CAVITY: Partial sigmoid colectomy. Diffuse diverticulosis. No obstruction. No visualized masses. No free fluid. No inflammatory changes or thickening of bowel wall. APPENDIX: Surgically absent. PELVIS: No significant masses. Normal bladder. No free fluid. ABDOMINAL WALL: No masses. No hernias. BONES: No significant or acute findings. OTHER: No other significant finding. IMPRESSION: Diverticulosis without evidence of diverticulitis. TECHNICAL DOCUMENTATION: JOB ID: [id number] Quality ID # [id number]: Final reports with documentation of one or more dose reduction techniques (e.g., Au tomated exposure control, adjustment of the mA and/or kV according to patient size, use of iterative reconstruction technique) 2010 [employer]- All Rights Reserved Reading location - IP/workstation name: [email or web address]
== END ==
LOC: RAD 08:25
PROVIDERS: ATTEND Internal Medicine Gastroenterology
DX: K57.30 Diverticulosis of large intestine without perforation or abscess without bleeding (principal); R10.9 Unspecified abdominal pain
CPT/HCPCS: 74177

== ENCOUNTER 2019-11-15 08:28 | Emergency (ER) | payer OTHER ==
[2019-11-15 10:22] LABS: ABSOLUTE BASOPHILS # (AUTO) 0.1 10^3/uL (0.0-0.2); ABSOLUTE EOSINOPHILS # (AUTO) 0.4 10^3/uL (0.0-0.6); ABSOLUTE LYMPHOCYTES (AUTO) 2.2 10^3/uL (0.5-4.7); ABSOLUTE MONOCYTES (AUTO) 0.4 10^3/uL (0.1-1.4); ABSOLUTE NEUT (AUTO) 4.7 10^3/uL (1.7-8.2); BASOPHILS % (AUTO) 0.9 % (0-2); HEMATOCRIT 38.3 % (36.0-47.0); HEMOGLOBIN 12.5 g/dL (12.0-15.5); LYMPHOCYTES % (AUTO) 28.4 % (13-45); MEAN CORPUSCULAR HEMOGLOBIN 25.9 pg (27.0-33.4); MEAN CORPUSCULAR HGB CONC 32.8 g/dL (32.0-36.0); MEAN CORPUSCULAR VOLUME 79 fl (80-97); MONOCYTES % (AUTO) 5.3 % (3-13); PLATELET COUNT 186 10^3/uL (150-450); RED BLOOD COUNT 4.84 10^6/uL (3.72-5.28); RED CELL DISTRIBUTION WIDTH 16.5 % (11.5-14.0); SEGMENTED NEUTROPHILS % (AUTO) 60.4 % (42-78); TOTAL CELLS COUNTED % (AUTO) 100 %; WHITE BLOOD COUNT 7.9 10^3/uL (4.0-10.5)
[2019-11-15 10:35] LABS: APPEARANCE,URINE CLEAR; BILIRUBIN,URINE NEGATIVE (NEGATIVE); COLOR,URINE STRAW; GLUCOSE, URINE NEGATIVE (NEGATIVE); KETONES,URINE NEGATIVE (NEGATIVE); LEUKOCYTE ESTERASE,URINE NEGATIVE (NEGATIVE); NITRITE,URINE NEGATIVE (NEGATIVE); PROTEIN,URINE NEGATIVE (NEGATIVE); URINE SPECIFIC GRAVITY 1.012; UROBILINOGEN,URINE NEGATIVE mg/dL (<2.0)
[2019-11-15 10:42] LABS: ALBUMIN 4.3 g/dL (3.5-5.0); ALKALINE PHOSPHATASE 96 U/L (38-126); ANION GAP 13 (5-19); ASPARTATE AMINO TRANSFERASE 23 U/L (14-36); BILIRUBIN,DIRECT 0.2 mg/dL (0.0-0.4); BILIRUBIN,TOTAL 0.2 mg/dL (0.2-1.3); BLOOD UREA NITROGEN 14 mg/dL (7-20); CARBON DIOXIDE 22 mmol/L (22-30); CHLORIDE 108 mmol/L (98-107); GLUCOSE 106 mg/dL (75-110); POTASSIUM 4.2 mmol/L (3.6-5.0); TOTAL PROTEIN 7.4 g/dL (6.3-8.2)
[2019-11-15] MEDS ORDERED: ONDANSETRON HCL INJ/PF 4 MG/2 ML SDV IV ONE (12:23)
[2019-11-15] MEDS ORDERED: NORMAL SALINE 1000 ML 1,000 ML IV ONE (12:23)
[2019-11-15] MEDS ORDERED: MORPHINE SULFATE 10 MG/ML INJ IV ONE (12:23)
--- NOTE | 2019-11-15 12:27 | ER Document Report ---
ED GI/ - General Chief Complaint: Abdominal Pain Stated Complaint: ABDOMINAL PAIN Time Seen by Provider: 11/15/19 12:03 Primary Care Provider: [facility] [Provider Group] - Follow up in 1 week JUSTIN MCLAIN PA-C [Primary Care Provider] - Follow up in 3-5 days JONNY APODACA MD [ACTIVE STAFF] - Follow up in 1 week Notes: Patient is a 64-year-old female with a past history of a Niesen, colon resection, diverticulitis, diverticulosis, hypothyroidism, restless leg syndrome, prediabetes, and hyperlipidemia who presents emergency department with a chief complaint of right lower quadrant abdominal pain. She states that she feels like she has a knot in her abdomen on the right lower side. Patient also has history of a cholecystectomy and appendectomy in the past. Patient states that her pain started last week. She also admits to having some diarrhea and drinking some milk. Patient states that she has also been dry heaving. Denies any dysuria. TRAVEL OUTSIDE OF THE [place] IN LAST 30 DAYS: No - Related Data Allergies/Adverse Reactions: codeine Allergy (Severe, Verified 04/09/19 10:00) Anaphylaxis mycins Allergy (Mild, Uncoded 04/09/19 10:00) ABD DISCOMFORT Home Medications: Metformin Past Medical History - Social History Smoking Status: Unknown if Ever Smoked Family History: Reviewed & Not Pertinent Patient has suicidal ideation: No Patient has homicidal ideation: No - Past Medical History Cardiac Medical History: Reports: Hx Atrial Fibrillation, Hx Hypercholesterolemia - "borderline" Denies: Hx Coronary Artery Disease, Hx Heart Attack Comment Only: Hx Hypertension - HAS LOOP RECORDER IN CHEST MONITORS HEARTBEAT Pulmonary Medical History: Denies: Hx Asthma, Hx Bronchitis, Hx COPD, Hx Pneumonia, Hx Tuberculosis Neurological Medical History: Denies: Hx Cerebrovascular Accident, Hx Seizures Endocrine Medical History: Reports: 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", Hx Hypothyroidism Renal/ Medical History: Denies: Hx Peritoneal Dialysis GI Medical History: Reports: Hx Gastroesophageal Reflux Disease, Hx Hiatal Hernia. Denies: Hx Hepatitis, Hx Ulcer Musculoskeletal Medical History: Denies Hx Arthritis Infectious Medical History: Denies: Hx Hepatitis Past Surgical History: Reports: Hx Abdominal Surgery - colon removal, hernia repair, Hx Appendectomy, Hx Bowel Surgery, Hx Cholecystectomy, Hx Herniorrhaphy, Hx Hysterectomy, Other - Neissen fundoplication. Denies: Hx Mastectomy, Hx Open Heart Surgery, Hx Pacemaker - Immunizations Hx Diphtheria, Pertussis, Tetanus Vaccination: Yes Review of Systems - Review of Systems Notes: REVIEW OF SYSTEMS: CONSTITUTIONAL : Denies recent illness. Denies recent unintentional weight loss. Denies fever, chills, or sweats. EENT: Denies eye, ear, throat, or mouth pain, discharge, or symptoms. Denies nasal or sinus congestion. CARDIOVASCULAR: Denies chest pain. RESPIRATORY: Denies shortness of breath, cough, congestion, difficulty breathing, or wheezing. GASTROINTESTINAL: See HPI. GENITOURINARY: Denies difficulty urinating, burning, blood in urine, urgency or frequency. MUSCULOSKELETAL: Denies neck and back pain. Denies joint pain or swelling. SKIN: Denies rash, itchiness, or lesions HEMATOLOGIC : Denies easy bruising or bleeding. LYMPHATIC: Denies swollen, painful, enlarged glands. NEUROLOGICAL: Denies no numbness or tingling denies weakness. Denies headache. Denies altered mental status. Denies alteration in speech. PSYCHIATRIC: Denies stress, anxiety, alteration in sleep patterns, or depression. All other systems reviewed and negative. Physical Exam - Vital signs Vitals: Temp Pulse Resp BP Pulse Ox 98.4 F 82 16 148/69 H 97 11/15/19 08:33 11/15/19 08:33 11/15/19 08:33 11/15/19 08:33 11/15/19 08:33 - Notes Notes: PHYSICAL EXAMINATION: GENERAL: Appears well, healthy, well-nourished, no acute distress. HEAD: Normocephalic, atraumatic. EYES: PERRL, conjunctiva normal, all extraocular movements intact, sclera nonicteric ENT: Moist mucous membranes. NECK: Supple, no noticeable swelling, redness, rash. Normal range of motion. LUNGS: Equal breath sounds bilaterally and clear to auscultation. No wheezes rales or rhonchi. CARDIOVASCULAR: S1-S2, regular rate, regular rhythm. Radial pulses 2+, normal. ABDOMEN: Normoactive bowel sounds. Soft, tender right lower abdomen, no guarding, no rebound tenderness, and no masses palpated. EXTREMITIES: Normal strength and range of motion, no pitting or edema. No cyanosis. NEUROLOGICAL: Moves all extremities upon command. Strength 5/5 in all extremities. PSYCH: Normal mood, normal affect. SKIN: Warm, dry. No rash, lesions, ulcerations noted. Normal skin turgor. Course - Re-evaluation Re-evalutation: 11/15/19 12:26 Hematology is unremarkable. No leukocytosis or anemia noted. Chemistries are normal with normal liver function and lipase. Urinalysis is unremarkable. Patient will be sent for CT of the abdomen pelvis with IV and oral contrast due to the multiple surgeries that she has had on her abdomen. 11/15/19 15:09 Patient was very uncomfortable and was given Reglan and Mylicon for her gums. I checked on her and she states that she does feel better. Awaiting CT of the abdomen pelvis. 11/15/19 15:30 CT of the abdomen pelvis shows diverticulitis, with no diverticulitis. She does have infiltrative liver. Discussed this with the patient. Since the patient had good relief with Mylicon and Reglan, I suspect patient may be had gas and this was for possible cause of her pain. She will be sent home with these medications and she will follow-up with her GI doctor and the surgical clinic this week. Follow-up precautions were given. Verbal discharge instructions were given to the patient. They verbalized understanding. They are stable for discharge. - Vital Signs Vital signs: Temp Pulse Resp BP Pulse Ox 98.0 F 62 20 138/68 H 99 11/15/19 15:40 11/15/19 15:40 11/15/19 15:40 11/15/19 15:40 11/15/19 15:40 - Laboratory Result Diagrams: 11/15/19 09:55 11/15/19 09:55 Laboratory results interpreted by me: 11/15/19 11/15/19 09:55 09:55 MCV 79 L MCH 25.9 L RDW 16.5 H Chloride 108 H Discharge - Discharge Clinical Impression: Diverticulosis, Fatty liver disease, nonalcoholic Abdominal pain Qualifiers: Abdominal location: right lower quadrant Qualified Code(s): R10.31 - Right lower quadrant pain Condition: Stable Disposition: HOME, SELF-CARE Additional Instructions: You were seen today in the emergency department for abdominal pain. Your CT shows diverticulosis, but no diverticulitis was seen. Please follow-up with your GI doctor next week and the surgeon as needed. You are being sent home with Mylicon and Reglan, to help with gas and nausea. Please take as directed. If you have worsening symptoms, return to the emergency department immediately. The radiologist noted that you have fatty liver disease, please continue taking your cholesterol medication as ordered by her primary care provider. Please f ollow-up with your primary care provider in regards to this visit. Prescriptions: Simethicone [Mylicon 80 mg Chewable Tablet] 80 mg PO QIDP PRN #60 tab.chew PRN Reason: Metoclopramide HCl [Reglan 10 mg Tablet] 1 - 2 tab PO ASDIR PRN #25 tablet PRN Reason: Referrals: JUSTIN MCLAIN PA-C [Primary Care Provider] - Follow up in 3-5 days JONNY APODACA MD [ACTIVE STAFF] - Follow up in 1 week [facility] [Provider Group] - Follow up in 1 week
[2019-11-15] MEDS ORDERED: SIMETHICONE 80 MG TAB.CHEW PO ONE (14:31)
[2019-11-15] MEDS ORDERED: METOCLOPRAMIDE HCL INJ/PF 10 MG/2 ML SDV IV ONE (14:34)
--- NOTE | 2019-11-15 15:20 | RADIOLOGY REPORT (SQ) ---
EXAM DESCRIPTION: CT ABD/PELVIS WITH IV ORAL COMPLETED DATE/TIME: 11/15/2019 2:54 pm REASON FOR STUDY: abdominal pain; hx of diverticulitis COMPARISON: 04/16/2019. TECHNIQUE: CT scan of the abdomen and pelvis performed using helical scanning technique with dynamic intravenous contrast injection. No oral contrast. Images reviewed with lung, soft tissue, and bone windows. Reconstructed coronal and sagittal MPR images reviewed. Delayed images for evaluation of the urinary system also acquired. All images stored on PACS. All CT scanners at this facility use dose modulation, iterative reconstruction, and/or weight based d osing when appropriate to reduce radiation dose to as low as reasonably achievable (ALARA). [facility]: Dose Right [facility]: CareDose [facility]: Dose Right [facility]: Teradose 4D [facility]: 5skills CONTRAST TYPE AND DOSE: contrast/concentration: Isovue 350.00 mg/ml; Total Contrast Delivered: 95.0 ml; Total Saline Delivered: 71.0 ml RENAL FUNCTION: BUN 14 creatinine 0.93. RADIATION DOSE: CT Rad equipment meets quality standard of care and radiation dose reduction techniq ues were employed. CTDIvol: 13.1 - 17.6 mGy. DLP: 1709 mGy-cm.. LIMITATIONS: None. FINDINGS: LOWER CHEST: No significant findings. No nodules or infiltrates. LIVER: Normal size. Diffuse fatty infiltration. No masses. No dilated ducts. SPLEEN: Normal size. No focal lesions. PANCREAS: No masses. No significant calcifications. No adjacent inflammation or peripancreatic fluid collections. Pancreatic duct not dilated. GALLBLADDER: Surgically absent. ADRENAL GLANDS: No significant masses or asymmetry. RIGHT KIDNEY AND URETER: Subcentimeter cortical cyst. No solid masses. No significant calcificatio ns. No hydronephrosis or hydroureter. LEFT KIDNEY AND URETER: No solid masses. No significant calcifications. No hydronephrosis or hydr oureter. AORTA AND VESSELS: No aneurysm. No dissection. Renal arteries, SMA, celiac without stenosis. RETROPERITONEUM: No retroperitoneal adenopathy, hemorrhage or masses. BOWEL AND PERITONEAL CAVITY: Surgical changes. Colonic diverticulosis. No masses or inflammatory ch anges. No free fluid or peritoneal masses. APPENDIX: Surgically absent. PELVIS: No mass. No free fluid. Normal bladder. ABDOMINAL WALL: No masses. No hernias. BONES: No significant or acute findings. OTHER: No other significant finding. IMPRESSION: 1. COLONIC DIVERTICULOSIS. NO CT FINDINGS OF DIVERTICULITIS. 2. FATTY INFILTRATION OF THE LIVER. 3. NO OTHER SIGNIFICANT OR ACUTE FINDING IN THE ABDOMEN OR PELVIS ON CT SCAN WITH IV CONTRAST. TECHNICAL DOCUMENTATION: JOB ID: [id number] Quality ID # [id number]: Final reports with documentation of one or more dose reduction techniques (e.g., Au tomated exposure control, adjustment of the mA and/or kV according to patient size, use of iterative reconstruction technique) 2010 [employer]- All Rights Reserved Reading location - IP/workstation name: [email or web address]
[2019-11-15 15:47] VITALS: BP 138/68
== END 2019-11-15 15:47 | disposition home or self-care (01) ==
LOC: ER 08:28
DX: R10.31 Right lower quadrant pain (principal); K57.30 Diverticulosis of large intestine without perforation or abscess without bleeding; K76.0 Fatty (change of) liver, not elsewhere classified; R19.7 Diarrhea, unspecified; I10 Essential (primary) hypertension; Z90.49 Acquired absence of other specified parts of digestive tract; Z87.892 Personal history of anaphylaxis; Z88.6 Allergy status to analgesic agent; Z88.5 Allergy status to narcotic agent; Z88.1 Allergy status to other antibiotic agents
CPT/HCPCS: 99284; 96361; 96374; 96375; 36415; 83690; 85025; 80053; 81001; 74177; J2765; J2270; J2405; J7030

== ENCOUNTER 2020-04-05 12:26 | Day surgery (SDC) | payer OTHER ==
[~2020-04-05 12:26] MED LIST changes: +MIDAZOLAM 2 MG/2 ML INJ ONE
[2020-04-05] MEDS ORDERED: DIPHENHYDRAMINE HCL 50 MG/ML VIAL IV PRN (13:01)
[2020-04-05] MEDS ORDERED: FENTANYL CITRATE INJ/PF 100 MCG/2 ML AMPUL IV PRN ×3 (13:01)
[2020-04-05] MEDS ORDERED: MEPERIDINE HCL/PF INJ 25 MG/1 ML DISP.SYRIN IV PRN (13:01)
[2020-04-05] MEDS ORDERED: PROMETHAZINE HCL INJ 25 MG/1 ML VIAL IV PRN ×2 (13:01)
--- NOTE | 2020-04-05 15:36 | Operative Report ---
Operative Report DATE OF SURGERY: 04/05/20 Operative Report: The risks benefits and alternatives of the procedure explained to the patient in detail and informed consent is obtained.A GIF Olympus video scope was inserted into the patient's mouth and hypopharynx, the esophagus is identified intubated and insufflated, the scope was then advanced through the esophagus stomach and duodenum ,retroflexion maneuver is done ,the esophagus stomach and first and second portions of the duodenum examined PREOPERATIVE DIAGNOSIS: Epigastric pain rule out peptic ulcer disease POSTOPERATIVE DIAGNOSIS: Gastritis status post biopsy and duodenitis OPERATION: EGD with biopsy SURGEON: JONNY APODACA ANESTHESIA: LMAC TISSUE REMOVED OR ALTERED: As noted above. COMPLICATIONS: None. ESTIMATED BLOOD LOSS: None. INTRAOPERATIVE FINDINGS: As noted above. PROCEDURE: Patient tolerated the procedure well. No immediate postprocedure complications are noted. Patient is discharged in good condition. Discharge date 04/05/2020. Discharge diet: Regular. Discharge activity: Regular. 2 to 3-week follow-up to discuss findings. Patient is instructed call the office or proceed to the emergency room should there be any further problems questions. Wait on the pathology.
[2020-04-05 15:51] VITALS: BP 138/76
== END 2020-04-05 15:50 | disposition home or self-care (01) ==
LOC: OROUT 12:26
PROVIDERS: ATTEND Internal Medicine Gastroenterology
DX: K29.50 Unspecified chronic gastritis without bleeding (principal); K29.80 Duodenitis without bleeding; E03.9 Hypothyroidism, unspecified; Z88.5 Allergy status to narcotic agent; Z79.899 Other long term (current) drug therapy; Z03.818 Encounter for observation for suspected exposure to other biological agents ruled out; Z79.84 Long term (current) use of oral hypoglycemic drugs
CPT/HCPCS: 43239; 82962; 87635; 88305 ×2; 00731; J2704; 731; J2250

== ENCOUNTER 2020-08-25 13:23 | Emergency (ER) | payer OTHER ==
[2020-08-25] MEDS ORDERED: LIDOCAINE 5% (700 MG) TRANSDERMAL ADH..PATCH TP ONE (13:59)
[2020-08-25] MEDS ORDERED: HYDROCODONE/ACETAMINOPHEN 5-325 MG TABLET PO ONE (13:59)
--- NOTE | 2020-08-25 14:05 | ER Document Report ---
ED Fall - General Chief Complaint: Fall Stated Complaint: FALL/ LOWER BACK PAIN Time Seen by Provider: 08/25/20 13:51 Primary Care Provider: JUSTIN MCLAIN PA-C [Primary Care Provider] - Follow up as needed AKIKO LUONG MD [ASSOCIATE] - Follow up as needed Mode of Arrival: Wheelchair Information source: Patient Notes: 64-year-old female presented to ED for complaint of fall onto her tailbone. She states she was putting together a chair on the porch when she decided she would check it out and sat in the chair she states the chair threw her off the porch onto the steps and then into the ER. She states it hurts to move and sit walk do anything. She states it even hurts to urinate. She states the pain is a 5 out of 5. She denies any saddle anesthesia, loss of control of bowel or bladder, loss or sensation to the lower extremities. She states she pain does not radiate down her legs. She states it just hurts. She does have a history of high cholesterol migraines hypothyroid she just had a barium swallow this morning. She has had colonoscopy and endoscopy and a colon resection for very small part of her colon. She also has had a fractured total hysterectomy appendix situs gallbladder removal right inguinal hernia and 2 ventral hernia repairs. She is a former smoker does not drink or do any drugs. She does live with her . Constitutional: Negative for fever. HENT: Negative for sore throat. Eyes: Negative for visual changes. Cardiovascular: Negative for chest pain. Respiratory: Negative for shortness of breath. Gastrointestinal: Negative for abdominal pain, vomiting or diarrhea. Genitourinary: Negative for dysuria. Musculoskeletal: Point tenderness to the coccyx area no bruising or swelling noted Skin: Negative for rash. Neurological: Negative for headaches, weakness or numbness. 10 point ROS negative except as marked above and in HPI. PHYSICAL EXAMINATION: GENERAL: Well-appearing, well-nourished and in no acute distress. HEAD: Atraumatic, normocephalic. EYES: Pupils equal round extraocular movements intact, conjunctiva are normal. ENT: Nares patent NECK: Normal range of motion LUNGS: No respiratory distress Musculoskeletal: Normal range of motion tenderness to the coccyx area no bruising no swelling. No signs or symptoms of cauda equina, no saddle anesthesia, no loss control of bowel bladder, no loss of control or sensation to the lower extremities. She is able to stand up and walk. NEUROLOGICAL: Normal speech, normal gait. PSYCH: Normal mood, normal affect. SKIN: Warm, Dry, normal turgor, no rashes or lesions noted. TRAVEL OUTSIDE OF THE [place] IN LAST 30 DAYS: No - HPI Occurred: Just prior to arrival Where: Home, Outdoors Context: Fell from sitting Associated symptoms: None Location of injury/pain: Back - Coccyx area Quality of pain: Sharp, Throbbing Severity: Severe Pain Level: 5 - Related data Allergies/Adverse Reactions: codeine Allergy (Severe, Verified 04/05/20 12:53) Anaphylaxis mycins Allergy (Mild, Uncoded 04/05/20 12:53) ABD DISCOMFORT Past Medical History - General Information source: Patient - Social History Smoking Status: Former Smoker Frequency of alcohol use: None Drug Abuse: None Lives with: Family Family History: Reviewed & Not Pertinent - Past Medical History Cardiac Medical History: Reports: Hx Atrial Fibrillation, Hx Hypercholesterolemia - "borderline", Hx Hypertension Pulmonary Medical History: Reports: None Neurological Medical History: Reports: Hx Migraine Endocrine Medical History: Reports: 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", Hx Hypothyroidism Renal/ Medical History: Reports: None Malignancy Medical History: Reports: None GI Medical History: Reports: Hx Gastroesophageal Reflux Disease, Hx Hiatal Hernia, Hx Colonoscopy, Hx Endoscopy Musculoskeletal Medical History: Reports Hx Musculoskeletal Trauma - Right total Skin Medical History: Reports None Psychiatric Medical History: Reports: None Traumatic Medical History: Reports: Hx Fractures - Right total Infectious Medical History: Reports: None Past Surgical History: Reports: Hx Appendectomy, Hx Bowel Surgery, Hx Cholecystectomy, Hx Hysterectomy, Hx Inguinal Hernia, Other - Neissen fundoplication ventral hernia repair with mesh - Immunizations Hx Diphtheria, Pertussis, Tetanus Vaccination: Yes Physical Exam - Vital signs Vitals: Temp Pulse Resp BP Pulse Ox 98.6 F 84 18 156/70 H 98 08/25/20 13:31 08/25/20 13:31 08/25/20 13:31 08/25/20 13:31 08/25/20 13:31 Course - Re-evaluation Re-evalutation: 08/25/20 23:31 After performing a Medical Screening Examination, I estimate there is LOW risk for EXPANDING OR RUPTURED ABDOMINAL AORTIC ANEURYSM, CAUDA EQUINA SYNDROME, EPIDURAL MASS LESION, or HERNIATED DISK CAUSING SEVERE SPINAL STENOSIS, thus I consider the discharge disposition reasonable. I have reevaluated this patient multiple times and no significant life threatening changes are noted. The patient and I have discussed the diagnosis and risks, and we agree with discharging home and close follow-up. We also discussed returning to the Emergency Department immediately if new or worsening symptoms occur with the understanding that symptoms and presentations can change. We have discussed the symptoms which are most concerning (e.g., saddle anesthesia, urinary or bowel incontinence or retention, changing or worsening pain) that necessitate immediate return. - Vital Signs Vital signs: Temp Pulse Resp BP Pulse Ox 98.2 F 71 17 147/76 H 100 08/25/20 15:42 08/25/20 15:42 08/25/20 15:42 08/25/20 15:42 08/25/20 15:42 - Diagnostic Test Radiology reviewed: Image reviewed, Reports reviewed Discharge - Discharge Clinical Impression: Arthritis of low back Coccyx contusion Qualifiers: Encounter type: initial encounter Qualified Code(s): S30.0XXA - Contusion of lower back and pelvis, initial encounter Condition: Stable Disposition: HOME, SELF-CARE Additional Instructions: CONTUSION: Your injury has resulted in a contusion -- a crushing of the deep tissues. No injury to important structures was detected during the physician's exam. Contusions vary in the amount of pain they cause, and in the length of time required for healing. Typically, the area will become bruised, and will remain painful to touch for two or three weeks. However, most patients are back to working and playing within a few days. After the initial period of rest and cold-packs, your symptoms (together with the doctor's recommendations) will determine how rapidly you can get back to full activity. Usually this means "do what feels okay, but don't do things that hurt." If re-examination was recommended, it's important to follow up as instructed. Call the doctor or return any time if pain increases, if swelling becomes severe, if you develop numbness or weakness in an injured extremity, or if any other alarming symptoms occur. LOW BACK PAIN: Three out of every four people will have an episode of disabling back pain during their lifetime. Most commonly the pain is due to straining of the muscles and ligaments in the low back. Usual treatment includes: (1) Rest on a firm surface. Avoid lying on your stomach. (2) Ice pack the painful area. After a few days, gentle heat may be used interm ittently to relax the area, or ice packs can be continued. (3) Medication may be needed -- muscle relaxers and antiinflammatory medicines are commonly used. (4) As the back improves, exercises are prescribed to strengthen the back and abdominal muscles. Your doctor will advise you on the proper care for your back at each stage in your recovery. You may be better in a few days -- or healing may take several weeks. If new symptoms of a "herniated disc" (radiation of pain, numbness, or tingling down the back of the leg or weakness in the leg) occur, you should be re-examined. Further testing may be necessary. USE OF TYLENOL (ACETAMINOPHEN): Acetaminophen may be taken for pain relief or fever control. It's much safer than aspirin, offering a wider range of "safe" dosages. It is safe during . Some brand names are Tylenol, Panadol, Datril, Anacin 3, Tempra, and Liquiprin. Acetaminophen can be repeated every four hours. The following are maximum recommended dosages: WEIGHT Dose Drops Elixir Chewable(80mg) (LBS.) drprs=droppers tsp=teaspoon 6 40 mg 0.4 ml (1/2) 6-11 80 mg 0.8 ml (full) tsp 1 tab 12-16 120 mg 1 1/2 drprs 3/4 tsp 1 1/2 tabs 17-23 160 mg 2 drprs 1 tsp 2 tabs 24-30 240 mg 3 drprs 1 1/2 tsp 3 tabs 30-35 320 mg 2 tsp 4 tabs 36-41 360 mg 2 1/4 tsp 4 1/2 tabs 42-47 400 mg 2 1/2 tsp 5 tabs 48-53 480 mg 3 tsp 6 tabs 54-59 520 mg 3 1/4 tsp 6 1/2 tabs 60-64 560 mg 3 1/2 tsp 7 tabs 65-70 600 mg 3 3/4 tsp 7 1/2 tabs 71-76 640 mg 4 tsp 8 tabs 77-82 720 mg 4 1/2 tsp 9 tabs 83-88 800 mg 5 tsp 10 tabs >89 pounds or adults 650 mg to 900 mg Acetaminophen can be repeated every four hours. Maximum dose not to exceed 4000 mg a day. These maximum recommended dosages are slightly higher than the dosages written on the product container, but these dosages are very safe and below the toxic dosage for acetaminophen. ICE PACKS: Apply ice packs frequently against the painful area. Many different schedules are recommended, such as "20 minutes on, 20 minutes off" or "one hour ice, two hours rest." If you need to work, you may need to go longer between ice treatments. You should plan to have the area ice packed AT LEAST one fourth of the time. The ice should be applied over the wrap, tape, or splint, or over a layer of cloth -- not directly against the skin. Some ice bags have a built-in cloth and can be put directly on the skin. WARM PACKS: After approximately two days, apply gentle heat (such as a heating pad or hot water bottle) for about 20 to 30 minutes about every two hours -- at least four times daily. Warmth and elevation will help you make a more rapid recovery, and will ease the pain considerably. Do not use HOT heat, and never apply heat for longer than 30 minutes. The continuous heat can invisibly damage skin and muscles -- even when no burn is seen on the surface. Damaged muscles can make you MORE sore. ORAL NARCOTIC MEDICATION: You have been given a norco for pain control. This medication is a narcotic. It's best taken with food, as nausea can result if taken on an empty stomach. Don't operate machinery or drive within six hours of taking this medication. Do not combine this medicine with alcohol, or with any medication which can cause sedation (such as cold tablets or sleeping pills) unless you get permission from the physician. Narcotics tend to cause constipation. If possible, drink plenty of fluids and eat a diet high in fiber and fruits. lidoderm patch can be left on for 12 hours then removed FOLLOW-UP CARE: If you have been referred to a physician for follow-up care, call the physicians office for an appointment as you were instructed or within the next two days. If you experience worsening or a significant change in your symptoms, notify the physician immediately or return to the Emergency Department at any time for re-evaluation. Prescriptions: Lidocaine [Lidoderm 5% (700 mg) Transdermal Patch] 1 patch TP DAILY #30 adh..patch Referrals: JUSTIN MCLAIN PA-C [Primary Care Provider] - Follow up as needed AKIKO LUONG MD [ASSOCIATE] - Follow up as needed
--- NOTE | 2020-08-25 15:05 | RADIOLOGY REPORT (SQ) ---
EXAM DESCRIPTION: L SPINE WHOLE IMAGES COMPLETED DATE/TIME: 08/25/2020 2:32 pm REASON FOR STUDY: fall onto "tailbone" COMPARISON: 09/20/2015 NUMBER OF VIEWS: Five views including obliques. TECHNIQUE: AP, lateral, oblique, and sacral radiographic images acquired of the lumbar spine. LIMITATIONS: Contrast material in the colon and bladder. FINDINGS: MINERALIZATION: Normal. SEGMENTATION: Normal. No transitional anatomy. ALIGNMENT: Normal. VERTEBRAE: Maintained height. No fracture or worrisome bone lesion. DISCS: Multilevel disc space narrowing with osteophytes. POSTERIOR ELEMENTS: Pedicles and facets are intact. No pars defect or posterior arch defects. Facet arthropathy is present. HARDWARE: None in the spine. PARASPINAL SOFT TISSUES: Normal. PELVIS: Intact as visualized. No fractures or worrisome bone lesions. SI joints intact. OTHER: No other significant finding. IMPRESSION: No acute osseous findings identified. TECHNICAL DOCUMENTATION: JOB ID: [id number] [place]-72 2010 [employer]- All Rights Reserved Reading location - IP/workstation name: [email or web address]
[2020-08-25 15:43] VITALS: BP 147/76
== END 2020-08-25 15:42 | disposition home or self-care (01) ==
LOC: ER 13:23
DX: S30.0XXA Contusion of lower back and pelvis, initial encounter (principal); M47.816 Spondylosis without myelopathy or radiculopathy, lumbar region; W17.89XA Other fall from one level to another, initial encounter; Y92.008 Other place in unspecified non-institutional (private) residence as the place of occurrence of the external cause; I48.91 Unspecified atrial fibrillation; E78.00 Pure hypercholesterolemia, unspecified; I10 Essential (primary) hypertension; Z90.49 Acquired absence of other specified parts of digestive tract; Z90.710 Acquired absence of both cervix and uterus
CPT/HCPCS: 72110; 99283

== ENCOUNTER 2020-10-08 14:10 | Emergency (ER) | payer OTHER ==
[2020-10-08 14:17] VITALS: BP 168/68
--- NOTE | 2020-10-08 15:24 | ER Document Report ---
ED Medical Screen (RME) - General Chief Complaint: Leg Pain Stated Complaint: LEG PAIN, LEG SWOLLEN Time Seen by Provider: 10/08/20 15:14 Primary Care Provider: JUSTIN MCLAIN PA-C [Primary Care Provider] - Follow up as needed TRAVEL OUTSIDE OF THE [place] IN LAST 30 DAYS: No - HPI Notes: Patient is a 65-year-old female with no medical history who presents with left calf pain and swelling that began a week ago and is remained constant. Patient states she recently traveled to [place] and back by plane. She also reports dyspnea on exertion and chest pain that feels like a "twinge". She has no history of DVT or PE. - Related Data Allergies/Adverse Reactions: codeine Allergy (Severe, Verified 10/08/20 15:12) Anaphylaxis mycins Allergy (Mild, Uncoded 10/08/20 15:12) ABD DISCOMFORT Home Medications: lipitor. meripax. tricor. flecainide. topiramate. synthroid. pramipexole. metformin Past Medical History - Social History Chew tobacco use (# tins/day): No Frequency of alcohol use: None Drug Abuse: None - Past Medical History Cardiac Medical History: Reports: Hx Atrial Fibrillation, Hx Hypercholesterolemia - "borderline", Hx Hypertension Denies: Hx Heart Attack Pulmonary Medical History: Denies: Hx Asthma, Hx Bronchitis, Hx COPD, Hx Pneumonia Neurological Medical History: Reports: Hx Migraine. Denies: Hx Seizures Endocrine Medical History: Reports: 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", Hx Hypothyroidism GI Medical History: Reports: Hx Gastroesophageal Reflux Disease, Hx Hiatal Hernia, Hx Colonoscopy, Hx Endoscopy Musculoskeltal Medical History: Denies Hx Arthritis, Reports Hx Musculoskeletal Trauma - Right total Traumatic Medical History: Reports: Hx Fractures - Right total Past Surgical History: Reports: Hx Abdominal Surgery - colon removal, hernia repair, Hx Appendectomy, Hx Bowel Surgery, Hx Cholecystectomy, Hx Hysterectomy, Hx Inguinal Hernia, Other - Neissen fundoplication ventral hernia repair with mesh. Denies: Hx Mastectomy, Hx Open Heart Surgery - Immunizations Hx Diphtheria, Pertussis, Tetanus Vaccination: Yes Physical Exam - Vital signs Vitals: Temp Pulse Resp BP Pulse Ox 98.4 F 82 18 168/68 H 100 10/08/20 14:16 10/08/20 14:16 10/08/20 14:16 10/08/20 14:16 10/08/20 14:16 - Cardiovascular Pulses: Normal: Posterior tibial, Dorsalis pedis - Extremities Calf: Nontender Course - Re-evaluation Re-evalutation: I have greeted and performed a rapid initial assessment of this patient. A comprehensive ED assessment and evaluation of the patient, analysis of test results and completion of medical decision making process will be conducted by an additional ED providers. - Vital Signs Vital signs: Temp Pulse Resp BP Pulse Ox 98.4 F 82 18 168/68 H 100 10/08/20 14:16 10/08/20 14:16 10/08/20 14:16 10/08/20 14:16 10/08/20 14:16 Doctor's Discharge - Discharge Referrals: JUSTIN MCLAIN PA-C [Primary Care Provider] - Follow up as needed
[2020-10-08 16:07] LABS: ABSOLUTE BASOPHILS # (AUTO) 0.1 10^3/uL (0.0-0.2); ABSOLUTE EOSINOPHILS # (AUTO) 0.3 10^3/uL (0.0-0.6); ABSOLUTE LYMPHOCYTES (AUTO) 2.3 10^3/uL (0.5-4.7); ABSOLUTE MONOCYTES (AUTO) 0.3 10^3/uL (0.1-1.4); ABSOLUTE NEUT (AUTO) 3.5 10^3/uL (1.7-8.2); BASOPHILS % (AUTO) 1.2 % (0-2); EOSINOPHILS % (AUTO) 4.7 % (0-6); HEMATOCRIT 37.4 % (36.0-47.0); HEMOGLOBIN 12.2 g/dL (12.0-15.5); LYMPHOCYTES % (AUTO) 35.9 % (13-45); MEAN CORPUSCULAR HEMOGLOBIN 25.8 pg (27.0-33.4); MEAN CORPUSCULAR HGB CONC 32.8 g/dL (32.0-36.0); MEAN CORPUSCULAR VOLUME 79 fl (80-97); PLATELET COUNT 184 10^3/uL (150-450); RED BLOOD COUNT 4.74 10^6/uL (3.72-5.28); RED CELL DISTRIBUTION WIDTH 16.3 % (11.5-14.0); SEGMENTED NEUTROPHILS % (AUTO) 53.2 % (42-78); TOTAL CELLS COUNTED % (AUTO) 100 %; WHITE BLOOD COUNT 6.5 10^3/uL (4.0-10.5)
--- NOTE | 2020-10-08 16:22 | RADIOLOGY REPORT (SQ) ---
EXAM DESCRIPTION: CHEST SINGLE VIEW IMAGES COMPLETED DATE/TIME: 10/08/2020 3:35 pm REASON FOR STUDY: chest pain COMPARISON: 03/23/2019 TECHNIQUE: Single frontal radiographic view of the chest acquired. NUMBER OF VIEWS: One view. LIMITATIONS: None. FINDINGS: LUNGS AND PLEURA: No pneumothorax. No consolidation or pleural effusion. MEDIASTINUM AND HILAR STRUCTURES: Stable. HEART AND VASCULAR STRUCTURES: Stable. BONES: No acute findings. 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 OTHER: No other significant finding. IMPRESSION: NO ACUTE FINDINGS. TECHNICAL DOCUMENTATION: JOB ID: [id number] [place]-72 2010 [employer]- All Rights Reserved Reading location - IP/workstation name: [email or web address]
[2020-10-08 16:25] LABS: ALBUMIN 4.5 g/dL (3.5-5.0); ALKALINE PHOSPHATASE 92 U/L (38-126); ANION GAP 12 (5-19); ASPARTATE AMINO TRANSFERASE 26 U/L (14-36); BILIRUBIN,DIRECT 0.2 mg/dL (0.0-0.4); BILIRUBIN,TOTAL 0.4 mg/dL (0.2-1.3); BLOOD UREA NITROGEN 18 mg/dL (7-20); CALCIUM 9.6 mg/dL (8.4-10.2); CARBON DIOXIDE 22 mmol/L (22-30); CHLORIDE 106 mmol/L (98-107); GLUCOSE 84 mg/dL (75-110); POTASSIUM 3.9 mmol/L (3.6-5.0); TOTAL PROTEIN 7.5 g/dL (6.3-8.2)
--- NOTE | 2020-10-08 17:28 | ER Document Report ---
ED General - General Chief Complaint: Leg Pain Stated Complaint: LEG PAIN, LEG SWOLLEN Time Seen by Provider: 10/08/20 15:14 Primary Care Provider: JUSTIN MCLAIN PA-C [Primary Care Provider] - Follow up as needed Notes: HPI: 65-year-old female presents today stating that she flew to [place] [facility] last week and had some bilateral lower extremity swelling, and then persistent left lower leg swelling. She states it is no longer swollen. She denies any trauma. She denies any fevers, chest pain, cough, shortness of breath. No other recent trips or travel. No history of DVT/PE. ROS: See HPI All other review of systems reviewed and otherwise negative Reviewed vital signs and nursing note as charted by RN. PHYSICAL EXAM: CONSTITUTIONAL: Alert and oriented and responds appropriately to questions. W ell-appearing; well-nourished HEAD: Normocephalic; atraumatic CARD: Regular rate and rhythm; no murmurs; symmetric distal pulses RESP: Normal chest excursion without splinting or tachypnea; breath sounds clear and equal bilaterally; no wheezes, no rhonchi, no rales ABD/GI: Normal bowel sounds; non-distended; soft, non-tender; no palpable organomegaly or masses BACK: The back appears normal and is non-tender to palpation EXT: Normal ROM in all joints; not detect any leg swelling, lower extremity edema, or calf pain. Neurovascular intact distally with excellent distal pulses SKIN: No acute lesions noted NEURO: CN 2-12 intact; 5/5 bilateral upper and lower extremity strength with sensation intact to light touch PSYCH: The patient's mood and manner are appropriate. Grooming and personal hygiene are appropriate. TRAVEL OUTSIDE OF THE [place] IN LAST 30 DAYS: No - Related Data Allergies/Adverse Reactions: codeine Allergy (Severe, Verified 10/08/20 15:12) Anaphylaxis mycins Allergy (Mild, Uncoded 10/08/20 15:12) ABD DISCOMFORT Home Medications: lipitor. meripax. tricor. flecainide. topiramate. synthroid. pramipexole. metformin Past Medical History - Social History Smoking Status: Former Smoker Chew tobacco use (# tins/day): No Frequency of alcohol use: None Drug Abuse: None Family History: Reviewed & Not Pertinent Patient has homicidal ideation: No - Past Medical History Cardiac Medical History: Reports: Hx Atrial Fibrillation, Hx Hypercholes terolemia - "borderline", Hx Hypertension Denies: Hx Heart Attack Pulmonary Medical History: Denies: Hx Asthma, Hx Bronchitis, Hx COPD, Hx Pneumonia Neurological Medical History: Reports: Hx Migraine. Denies: Hx Seizures Endocrine Medical History: Reports: 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", Hx Hypothyroidism GI Medical History: Reports: Hx Gastroesophageal Reflux Disease, Hx Hiatal Hernia, Hx Colonoscopy, Hx Endoscopy Musculoskeletal Medical History: Denies Hx Arthritis, Reports Hx Musculoskeletal Trauma - Right total Traumatic Medical History: Reports: Hx Fractures - Right total Past Surgical History: Reports: Hx Abdominal Surgery - colon removal, hernia repair, Hx Appendectomy, Hx Bowel Surgery, Hx Cholecystectomy, Hx Hysterectomy, Hx Inguinal Hernia, Other - Neissen fundoplication ventral hernia repair with mesh. Denies: Hx Mastectomy, Hx Open Heart Surgery - Immunizations Hx Diphtheria, Pertussis, Tetanus Vaccination: Yes Physical Exam - Vital signs Vitals: Temp Pulse Resp BP Pulse Ox 98.4 F 82 18 168/68 H 100 10/08/20 14:16 10/08/20 14:16 10/08/20 14:16 10/08/20 14:16 10/08/20 14:16 Course - Re-evaluation Re-evalutation: Given the history and physical examination a Doppler ultrasound and x-ray as well as a cardiac panel was ordered in triage. EKG shows a heart rate of 70, normal sinus rhythm, normal axis, no obvious real ST elevation. Minimal nonspecific depressions in V3 and V4. patient has not had any chest pain during the course of this illness. 10/08/20 17:26 X-ray of the chest, troponin, basic labs, Doppler ultrasound are unremarkable. No DVT. No change in exam. The above history and physical, patient will be discharged home with strict return precautions and follow-up with the primary care physician. - Vital Signs Vital signs: Temp Pulse Resp BP Pulse Ox 98.4 F 82 18 168/68 H 100 10/08/20 14:16 10/08/20 14:16 10/08/20 14:16 10/08/20 14:16 10/08/20 14:16 - Laboratory Result Diagrams: 10/08/20 15:40 10/08/20 15:40 Laboratory results interpreted by me: 10/08/20 10/08/20 15:40 15:40 MCV 79 L MCH 25.8 L RDW 16.3 H Est GFR (MDRD) Non-Af 50 L Discharge - Discharge Clinical Impression: Pain of left calf Condition: Good Disposition: HOME, SELF-CARE Additional Instructions: Come back immediately for any increased pain, swelling, any chest pain or sh ortness of breath, or any other acute problems. Please follow-up with your primary care physician and possibly also the orthopedic surgeon that I referred you to for further assessment and treatment. You should also have a repeat Doppler ultrasound ordered in 1 week for reassessment. Referrals: JUSTIN MCLAIN PA-C [Primary Care Provider] - Follow up as needed CHARO GENAO DO [ACTIVE STAFF] - Follow up as needed
--- NOTE | 2020-10-08 17:29 | RADIOLOGY REPORT (SQ) ---
EXAM DESCRIPTION: VENOUS UNILATERAL LOWER IMAGES COMPLETED DATE/TIME: 10/08/2020 5:15 pm REASON FOR STUDY: leg swelling COMPARISON: None. TECHNIQUE: Dynamic and static pearson scale and color images acquired of the left leg venous system. Se lected spectral images acquired with additional compression and augmentation maneuvers. The contralat eral common femoral vein and saphenofemoral junction were also imaged. Images stored on PACS. LIMITATIONS: None. FINDINGS: COMMON FEMORAL: Normal phasicity, compression and augmentation. No visualized echogenic ma terial on pearson scale. No defects on color images. FEMORAL: Normal compression and augmentation. No visualized echogenic material on pearson scale. No defe cts on color images. POPLITEAL: Normal compression, augmentation. No visualized echogenic material on pearson scale. No defec ts on color images. CALF VESSELS: Normal compression, augmentation. No visualized echogenic material on pearson scale. No de fects on color images. GSV and SSV: Normal compression, augmentation. No visualized echogenic material on pearson scale. No def ects on color images. ANY DEEP VENOUS INSUFFICIENCY: Not evaluated. ANY EVIDENCE OF POPLITEAL CYST: No. OTHER: No other significant finding. CONTRALATERAL COMMON FEMORAL VEIN AND SAPHENOFEMORAL JUNCTION: Normal phasicity, compression and augmentation. No visualized echogenic material on pearson scale. No de fects on color images. IMPRESSION: NO EVIDENCE DVT OR SVT IN THE LEFT LEG. TECHNICAL DOCUMENTATION: JOB ID: [id number] [place]-72 2010 [email or web address]- All Rights Reserved Reading location - IP/workstation name: Done In :60 Seconds
--- NOTE | 2020-10-08 18:59 | EKG REPORT ---
SEVERITY:- NORMAL ECG - SINUS RHYTHM : Confirmed by: Michell Jade MD 08-Oct-2020 18:58:11
== END 2020-10-08 17:46 | disposition home or self-care (01) ==
LOC: ER 14:10
DX: M79.662 Pain in left lower leg (principal); I10 Essential (primary) hypertension; G43.909 Migraine, unspecified, not intractable, without status migrainosus; E03.9 Hypothyroidism, unspecified; R73.03 Prediabetes; Z79.84 Long term (current) use of oral hypoglycemic drugs; Z79.899 Other long term (current) drug therapy; Z87.891 Personal history of nicotine dependence; Z87.892 Personal history of anaphylaxis; Z88.6 Allergy status to analgesic agent; Z88.5 Allergy status to narcotic agent; Z88.1 Allergy status to other antibiotic agents
CPT/HCPCS: 36415; 71045; 80053; 84484; 85025; 93005; 93010; 93971; 99285

== ENCOUNTER 2020-12-12 14:18 | Emergency (ER) | payer OTHER ==
--- NOTE | 2020-12-12 14:29 | ER Document Report ---
ED Medical Screen (RME) - General Chief Complaint: Altered Mental Status Stated Complaint: ALTERED Time Seen by Provider: 12/12/20 14:21 Primary Care Provider: JUSTIN MCLAIN PA-C [Primary Care Provider] - Follow up as needed Mode of Arrival: Wheelchair Information source: Relative Notes: HPI; 65-year-old female was brought to emergency room with her with slur red speech and confusion that started approximately around noon today. Per spouse patient had received bad news concerning her granddaughter went to go tell another family member about the call but then could not remember why she was there. Persistent confusion and slurred speech since. Last known normal at noon. No previous CVAs. PE: Patient is alert but unable to tell me her name, location, does not recognize her . Slurred speech noted. Remaining fast exam is negative. Charge nurse notified. Patient taken directly to CT. I have greeted and performed a rapid initial assessment of this patient. A comprehensive ED assessment and evaluation of the patient, analysis of test results and completion of the medical decision making process will be conducted by additional ED providers. I have specifically instructed the patient or family members with the patient to immediately return to any nursing staff should anything change in the patient's condition or with their chief complaint. TRAVEL OUTSIDE OF THE [place] IN LAST 30 DAYS: No - Related Data Allergies/Adverse Reactions: codeine Allergy (Severe, Verified 10/08/20 15:12) Anaphylaxis mycins Allergy (Mild, Uncoded 10/08/20 15:12) ABD DISCOMFORT Past Medical History - Past Medical History Cardiac Medical History: Reports: Hx Atrial Fibrillation, Hx Hypercholesterolemia - "borderline", Hx Hypertension Denies: Hx Heart Attack Pulmonary Medical History: Denies: Hx Asthma, Hx Bronchitis, Hx COPD, Hx Pneumonia Neurological Medical History: Reports: Hx Migraine. Denies: Hx Seizures Endocrine Medical History: Reports: 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", Hx Hypothyroidism GI Medical History: Reports: Hx Gastroesophageal Reflux Disease, Hx Hiatal Hernia, Hx Colonoscopy, Hx Endoscopy Musculoskeltal Medical History: Denies Hx Arthritis, Reports Hx Musculoskeletal Trauma - Right total Traumatic Medical History: Reports: Hx Fractures - Right total Past Surgical History: Reports: Hx Abdominal Surgery - colon removal, hernia repair, Hx Appendectomy, Hx Bowel Surgery, Hx Cholecystectomy, Hx Hysterectomy, Hx Inguinal Hernia, Other - Neissen fundoplication ventral hernia repair with mesh. Denies: Hx Mastectomy, Hx Open Heart Surgery - Immunizations Hx Diphtheria, Pertussis, Tetanus Vaccination: Yes Doctor's Discharge - Discharge Referrals: JUSTIN MCLAIN PA-C [Primary Care Provider] - Follow up as needed
--- NOTE | 2020-12-12 14:45 | RADIOLOGY REPORT (SQ) ---
EXAM DESCRIPTION: CT HEAD WITHOUT IMAGES COMPLETED DATE/TIME: 12/12/2020 2:32 pm REASON FOR STUDY: slurred speech altered mental status COMPARISON: MR dated 03/30/2013. TECHNIQUE: Axial images acquired through the brain without intravenous contrast. Images reviewed wi th bone, brain and subdural windows. Additional sagittal and coronal reconstructions were generated. Images stored on PACS. All CT scanners at this facility use dose modulation, iterative reconstruction, and/or weight based d osing when appropriate to reduce radiation dose to as low as reasonably achievable (ALARA). [facility]: Dose Right [facility]: CareDose [facility]: Dose Right [facility]: Teradose 4D [facility]: [employer] Technologies RADIATION DOSE: CT Rad equipment meets quality standard of care and radiation dose reduction techniq ues were employed. CTDIvol: 53.2 mGy. DLP: 1044 mGy-cm. mGy. LIMITATIONS: None. FINDINGS: VENTRICLES: Normal size and contour. CEREBRUM: No masses. No hemorrhage. No midline shift. No evidence for acute infarction. Normal gra y/white matter differentiation. No areas of low density in the white matter. CEREBELLUM: No masses. No hemorrhage. No alteration of density. No evidence for acute infarction. EXTRAAXIAL SPACES: No fluid collections. No masses. ORBITS AND GLOBE: No intra- or extraconal masses. Normal contour of globe without masses. CALVARIUM: No fracture. PARANASAL SINUSES: No fluid or mucosal thickening. SOFT TISSUES: No mass or hematoma. OTHER: No other significant finding. IMPRESSION: NORMAL BRAIN CT WITHOUT CONTRAST. EVIDENCE OF ACUTE STROKE: NO. COMMENT: Pertinent positive or negative findings of the imaging study reported as a CRITICAL EXAM t romy RIZO MD at14:36 on 12/12/2020. Category of Critical Exam: Stroke alert. Quality ID # [id number]: Final reports with documentation of one or more dose reduction techniques (e.g., Au tomated exposure control, adjustment of the mA and/or kV according to patient size, use of iterative reconstruction technique) TECHNICAL DOCUMENTATION: JOB ID: [id number] 2010 [employer]- All Rights Reserved Reading location - IP/workstation name: [email or web address]
--- NOTE | 2020-12-12 14:51 | RADIOLOGY REPORT (SQ) ---
EXAM DESCRIPTION: CHEST SINGLE VIEW IMAGES COMPLETED DATE/TIME: 12/12/2020 2:37 pm REASON FOR STUDY: slurred speech altered mental status COMPARISON: 10/08/2020. EXAM PARAMETERS: NUMBER OF VIEWS: One view. TECHNIQUE: Single frontal radiographic view of the chest acquired. RADIATION DOSE: NA LIMITATIONS: None. FINDINGS: LUNGS AND PLEURA: No opacities, masses or pneumothorax. No pleural effusion. MEDIASTINUM AND HILAR STRUCTURES: No masses. Contour normal. HEART AND VASCULAR STRUCTURES: Heart normal in size. Normal vasculature. BONES: No acute findings. HARDWARE: Cardiac recorder. OTHER: No other significant finding. IMPRESSION: NO ACUTE RADIOGRAPHIC FINDING IN THE CHEST. TECHNICAL DOCUMENTATION: JOB ID: [id number] 2010 [employer]- All Rights Reserved Reading location - IP/workstation name: [email or web address]
[2020-12-12 14:56] LABS: ABSOLUTE BASOPHILS # (AUTO) 0.1 10^3/uL (0.0-0.2); ABSOLUTE EOSINOPHILS # (AUTO) 0.2 10^3/uL (0.0-0.6); ABSOLUTE LYMPHOCYTES (AUTO) 1.9 10^3/uL (0.5-4.7); ABSOLUTE MONOCYTES (AUTO) 0.5 10^3/uL (0.1-1.4); ABSOLUTE NEUT (AUTO) 5.6 10^3/uL (1.7-8.2); HEMATOCRIT 38.6 % (36.0-47.0); HEMOGLOBIN 12.3 g/dL (12.0-15.5); LYMPHOCYTES % (AUTO) 22.5 % (13-45); MEAN CORPUSCULAR HEMOGLOBIN 24.6 pg (27.0-33.4); MEAN CORPUSCULAR HGB CONC 31.7 g/dL (32.0-36.0); MEAN CORPUSCULAR VOLUME 77 fl (80-97); MONOCYTES % (AUTO) 5.8 % (3-13); PLATELET COUNT 175 10^3/uL (150-450); RED BLOOD COUNT 4.99 10^6/uL (3.72-5.28); RED CELL DISTRIBUTION WIDTH 16.6 % (11.5-14.0); SEGMENTED NEUTROPHILS % (AUTO) 67.7 % (42-78); TOTAL CELLS COUNTED % (AUTO) 100 %; WHITE BLOOD COUNT 8.3 10^3/uL (4.0-10.5)
[2020-12-12 15:18] LABS: ALBUMIN 4.2 g/dL (3.5-5.0); ALKALINE PHOSPHATASE 98 U/L (38-126); ANION GAP 9 (5-19); ASPARTATE AMINO TRANSFERASE 23 U/L (14-36); BILIRUBIN,DIRECT 0.2 mg/dL (0.0-0.4); BILIRUBIN,TOTAL 0.3 mg/dL (0.2-1.3); BLOOD UREA NITROGEN 15 mg/dL (7-20); CALCIUM 9.4 mg/dL (8.4-10.2); CARBON DIOXIDE 24 mmol/L (22-30); CHLORIDE 105 mmol/L (98-107); CREATINE KINASE 61 U/L (30-135); GLUCOSE 97 mg/dL (75-110); POTASSIUM 3.9 mmol/L (3.6-5.0); TOTAL PROTEIN 7.1 g/dL (6.3-8.2)
[2020-12-12 15:28] LABS: CREATINE KINASE MB 0.91 ng/mL (<4.55)
[2020-12-12 15:29] LABS: TROPONIN I < 0.012 ng/mL
[2020-12-12] MEDS ORDERED: BUTALB/ACETAMINOPHEN/CAFFEINE 1 TAB EACH PO ONE (16:55)
[2020-12-12] MEDS ORDERED: LORAZEPAM INJ 2 MG/1 ML VIAL IV ONE (17:28)
[2020-12-12 18:17] LABS: APPEARANCE,URINE CLEAR; BILIRUBIN,URINE NEGATIVE (NEGATIVE); COLOR,URINE COLORLESS; GLUCOSE, URINE NEGATIVE (NEGATIVE); KETONES,URINE NEGATIVE (NEGATIVE); LEUKOCYTE ESTERASE,URINE NEGATIVE (NEGATIVE); NITRITE,URINE NEGATIVE (NEGATIVE); PROTEIN,URINE NEGATIVE (NEGATIVE); URINE SPECIFIC GRAVITY 1.006; UROBILINOGEN,URINE NEGATIVE mg/dL (<2.0)
--- NOTE | 2020-12-12 18:35 | EKG REPORT ---
SEVERITY:- BORDERLINE ECG - SINUS ARRHYTHMIA : Confirmed by: Dominic Laurent MD 12-Dec-2020 18:34:51
--- NOTE | 2020-12-12 18:36 | ER Document Report ---
ED Dizziness/Weakness - General Chief Complaint: Altered Mental Status Stated Complaint: ALTERED Time Seen by Provider: 12/12/20 14:21 Primary Care Provider: JUSTIN MCLAIN PA-C [Primary Care Provider] - Follow up as needed Mode of Arrival: Wheelchair Information source: Patient TRAVEL OUTSIDE OF THE [place] IN LAST 30 DAYS: No - HPI Notes: Patient presents with confusion. Patient states she has been under a lot of stress. She states recently one of her best friends is dying. Today she found out that her granddaughter has a brain tumor. After this news patient became confused and was brought to the emergency department by her family. No known extremity weakness. No trouble with vision or speaking. She has been complai siomara of a headache. It is severe and throbbing. It starts in the occipital area and goes to her neck. No vomiting. Nothing is made the pain better or worse. No previous history of similar symptoms. No previous history of strokes. - Related Data Allergies/Adverse Reactions: codeine Allergy (Severe, Verified 12/12/20 14:52) Anaphylaxis mycins Allergy (Mild, Uncoded 12/12/20 14:52) ABD DISCOMFORT Past Medical History - General Information source: Patient, Relative - Social History Smoking Status: Never Smoker Frequency of alcohol use: None Drug Abuse: None Family History: Reviewed & Not Pertinent Patient has homicidal ideation: No - Past Medical History Cardiac Medical History: Reports: Hx Atrial Fibrillation, Hx Hypercholesterolemia - "borderline", Hx Hypertension Denies: Hx Heart Attack Pulmonary Medical History: Denies: Hx Asthma, Hx Bronchitis, Hx COPD, Hx Pneumonia Neurological Medical History: Reports: Hx Migraine. Denies: Hx Seizures Endocrine Medical History: Reports: Hx Diabetes Mellitus Type 2 - "pre d iabetic", Hx Hypothyroidism GI Medical History: Reports: Hx Gastroesophageal Reflux Disease, Hx Hiatal Hernia, Hx Colonoscopy, Hx Endoscopy Musculoskeletal Medical History: Denies Hx Arthritis, Reports Hx Musculoskeletal Trauma - Right total Traumatic Medical History: Reports: Hx Fractures - Right total Past Surgical History: Reports: Hx Abdominal Surgery - colon removal, hernia repair, Hx Appendectomy, Hx Bowel Surgery, Hx Cholecystectomy, Hx Hysterectomy, Hx Inguinal Hernia, Other - Neissen fundoplication ventral hernia repair with mesh. Denies: Hx Mastectomy, Hx Open Heart Surgery - Immunizations Hx Diphtheria, Pertussis, Tetanus Vaccination: Yes Review of Systems - Review of Systems Constitutional: denies: Chills, Fever Cardiovascular: denies: Chest pain, Palpitations Respiratory: denies: Cough, Short of breath -: Yes All other systems reviewed and negative Physical Exam - Vital signs Vitals: Pulse Resp BP Pulse Ox 82 13 152/80 H 100 12/12/20 15:03 12/12/20 15:03 12/12/20 15:03 12/12/20 15:03 Interpretation: Hypertensive - General General appearance: Appears well, Alert - HEENT Head: Normocephalic, Atraumatic Eyes: Normal Pupils: PERRL - Respiratory Respiratory status: No respiratory distress Chest status: Nontender Breath sounds: Normal Chest palpation: Normal - Cardiovascular Rhythm: Regular Heart sounds: Normal auscultation Murmur: No - Abdominal Inspection: Normal Distension: No distension Bowel sounds: Normal Tenderness: Nontender Organomegaly: No organomegaly - Back Back: Normal, Nontender - Extremities General upper extremity: Normal inspection, Nontender, Normal color, Normal ROM, Normal temperature General lower extremity: Normal inspection, Nontender, Normal color, Normal ROM, Normal temperature, Normal weight bearing. No: Melodie's sign - Neurological Neuro grossly intact: Yes Cognition: Confused Orientation: Disoriented to time Fabio Coma Scale Eye Opening: Spontaneous [place] Coma Scale Verbal: Confused [place] Coma Scale Motor: Obeys Commands [place] Coma Scale Total: 14 Speech: Normal Motor strength normal: LUE, RUE, LLE, RLE Additional motor exam normals: Equal foreign exchange clerk. No: Pronator drift Sensory: Normal - Psychological Associated symptoms: Confused, Psychomotor depression - Skin Skin Temperature: Warm Skin Moisture: Dry Skin Color: Normal Course - Re-evaluation Re-evalutation: 12/12/20 18:34 Patient presents with confusion after receiving some stressful news. CT shows no evidence of acute infarct. Exam is unremarkable for any focal deficits. Patient remains with confusion therefore an MRI has been ordered. I have discussed this with the patient and family. She states she is claustrophobic so Ativan has been ordered. Her headache has been treated with Fioricet. Patient has also had a behavioral consult ordered and is currently pending. - Vital Signs Vital signs: Temp Pulse Resp BP Pulse Ox 85 14 162/74 H 97 12/12/20 18:01 12/12/20 18:01 12/12/20 18:01 12/12/20 18:01 - Laboratory Results Result Diagrams: 12/12/20 14:38 12/12/20 14:38 Laboratory Results Interpreted: 12/12/20 12/12/20 14:38 14:38 MCV 77 L MCH 24.6 L MCHC 31.7 L RDW 16.6 H Est GFR (MDRD) Non-Af 56 L Critical Laboratory Results Reviewed: No Critical Results - Radiology Results Critical Radiology Results Reviewed: No Critical Results Discharge - Discharge Clinical Impression: Situational anxiety, Situational, disturbance, acute Disposition: OTHER Referrals: JUSTIN MCLAIN PA-C [Primary Care Provider] - Follow up as needed
--- NOTE | 2020-12-12 18:41 | RADIOLOGY REPORT (SQ) ---
EXAM DESCRIPTION: MRI HEAD WITHOUT IMAGES COMPLETED DATE/TIME: 12/12/2020 3:27 pm REASON FOR STUDY: ams COMPARISON: CT head 12/12/2020 TECHNIQUE: Multiplanar imaging includes non-contrasted T1, T2, FLAIR, and diffusion with ADC map seq uences. Images stored on PACS. LIMITATIONS: None. FINDINGS: ANATOMY: No anomalies. Normal vascular flow voids. Pituitary fossa normal. CSF SPACES: Normal in size and contour. No hemorrhage. CEREBRUM: Sulci and gyri normal in size and contour. Normal white matter signal on FLAIR imaging. No evidence of hemorrhage, mass, or extraaxial fluid collection. POSTERIOR FOSSA: No signal alteration. No hemorrhage. No edema, masses or mass effect. Internal anshul tory canals, cerebello-pontine angles, mastoids normal. DIFFUSION IMAGING: Negative for acute or sub-acute infarction. ORBITS: No masses. Globes normal. PARANASAL SINUSES: No fluid levels. Mucosa normal. OTHER: No other significant finding. IMPRESSION: NORMAL MRI OF THE BRAIN WITHOUT INTRAVENOUS GADOLINIUM CONTRAST. EVIDENCE OF ACUTE STROKE: NO. TECHNICAL DOCUMENTATION: JOB ID: [id number] [email or web address]- All Rights Reserved Reading location - IP/workstation name: [id number]
[2020-12-12] MEDS ORDERED: IBUPROFEN 600 MG TABLET PO ONE (19:01)
[2020-12-12 19:41] VITALS: BP 156/84
--- NOTE | 2020-12-12 20:56 | PSYCHOLOGICAL NOTE ---
Psych Note - Psych Note Date seen by psych provider: 12/12/20 Time seen by psych provider: 17:52 Psych Note: Reason for Consult: altered mental status and confusion [id number] Consent Permissions: , Negrito, and daughter in law, Hortencia; both at bedside Patient is a 65 year old female who presented to the [facility] BEDS AT THE [facility] ED today via POV with her . Patient recently has experienced trauma related to her friend having cancer and finding out that her granddaughter has a tumor. Psych was consulted due to concerns of patient presenting confused and not being able to remember recent events. Patient reportedly called her about their granddaughter having a tumor, walked to her mothers house, and then presented confused. She seems confused in the ED as she does not recall the news of her granddaughter and does not recall going to her mothers house. Patient also does not recall getting a CT scan while in the ED. When reminded about her granddaughter, patient states she does not want to talk about it. Patient denies suicidal ideation, plan, and intent. She denies all mental health history. She denies family mental health history. She can recall events from her past and early in the day and week, but states she cannot recall what took place prior to coming to the ED and while in the ED presents confused. Patient was alert and oriented to self and person, but not to situation. Mood was confused with congruent affect. She denies current suicidal and homicidal ideation, plan, and intent. Patient did not appear to be responding to internal stimuli as evidenced by fair eye contact and answering questions appropriately when addressed. Thought processes are linear and organized. Conversational speech was within normal limits for rate, tone and prosody. Intellectual abilities are estimated to be average. Patient engages appropriately. Clinical Presentation: trauma response IVC Criteria per [place] GS 122C Dangerous to others Within the relevant past the individual No has inflicted or attempted to inflict or threatened to inflict serious bodily harm on another AND No that there is a reasonable probability that this conduct will be repeated. OR No has acted in such a way as to create a substantial risk of serious bodily harm to another AND No that there is a reasonable probability that this conduct will be repeated. OR No has engaged in extreme destruction of property AND NO that there is a reasonable probability that this conduct will be repeated. Previous episodes of dangerousness to others, when applicable, may be considered when determining reasonable probability of future dangerous conduct. Clear, cogent, and convincing evidence that an individual has committed a homicide in the relevant past is prima facie evidence of dangerousness to others. Dangerous to self Within the relevant past the individual has done any of the following: acted in such a way as to show ALL of the following: No The individual would be unable without care, supervision, and the continued assistance of others not otherwise available, to exercise self- control, judgment, and discretion in the conduct of the individual's daily responsibilities and social relations or to satisfy the individual's need for nourishment, personal or medical care, custodial, or self-protection and safety. AND No There is a reasonable probability of the individual suffering serious physical debilitation within the near future unless adequate treatment is given. A showing of behavior that is grossly irrational, of actions that the individual is unable to control, of behavior that is grossly inappropriate to the situat ion, or of other evidence of severely impaired insight and judgment shall create a prima facie inference that the individual is unable to care for himself or herself. OR No has attempted suicide or threatened suicide AND No that there is a reasonable probability of suicide unless adequate treatment is given OR No has mutilated himself or herself or attempted to mutilate himself or herself AND No that there is a reasonable probability of serious self-mutilation unless adequate treatment is given. NOTE: Previous episodes of dangerousness to self, when applicable, may be considered when determining reasonable probability of physical debilitation, suicide, or self-mutilation. Impression\plan: Patient is cleared from psychiatric services. Patient was admitted to the ED with confusion and behavioral health was consulted. She is not a danger to self and has no mental health history. There are no concerns for SI/HI and patient was only assessed due to her confused state. She has not had an occurrence like this before and has no history of memory loss or memory issues. She denies any TBI or recent head injuries. The symptoms presented appear to be related to a trauma response as if the brain has gone into shock due to being overwhelmed with negative and difficult news. Patients CT scan and MRI have been conducted and reviewed and no issues or concerns were presented. She is recommended to follow up with her PCP and neurology. states she already sees a neurologist and they will follow up. They were recommended to return to the ED if symptoms worsen. Dr. Olivo was consulted to care management of this patient; attending physicians in agreement with recommendations and disposition.
== END 2020-12-12 19:58 | disposition home or self-care (01) ==
LOC: ER 14:18
DX: F43.20 Adjustment disorder, unspecified (principal); R47.81 Slurred speech; R41.0 Disorientation, unspecified; I48.91 Unspecified atrial fibrillation; R73.03 Prediabetes; E78.00 Pure hypercholesterolemia, unspecified; I10 Essential (primary) hypertension; Z90.49 Acquired absence of other specified parts of digestive tract; Z88.6 Allergy status to analgesic agent
CPT/HCPCS: 93005; 99285; 96374; 36415; 82553; 82962; 82550; 85025; 80053; 81001; 84484; 70551; 71045; 70450; 93010; J3490; J2060